=== PATIENT | female | born 1945 | race Caucasian/White ===

== ENCOUNTER → 2018-04-11 11:43 | Outpatient (CLI) | payer MEDICARE, OTHER, SELFPAY ==
[2018-04-11 10:41] VITALS: BMI 18.5
[2018-04-11 14:14] LABS: Anion Gap 11 (5-15); BUN 10 mg/dL (7-18); BUN/Creat Ratio 15.9 RATIO (10-20); Calcium,Total 9.4 mg/dL (8.5-10.1); Chloride 100 mmol/L (98-107); Creatinine, Serum 0.63 mg/dL (0.55-1.02); EST Glomerular Filtration Rate 99 mL/min (>60); Est Glom Filt Rate - Afr Amer 120 mL/min (>60); Glucose 98 mg/dL (74-106); Potassium 3.6 mmol/L (3.5-5.1); Sodium Level 138 mmol/L (136-145)
--- OUTSIDE RECORDS SUMMARY | 2018-05-28 13:13 | XMS RPT_ITS ---
:1945 Author Organization [facility] Care Team Providers Name Role Phone Pito Fung Attending Unavailable Kenton, Pito Referring Unavailable Pito Fung Attending Unavailable Kenton, Pito Referring Unavailable Pito Fung Primary Care Unavailable PROBLEMS PROBLEMS DATE TYPE CONDITION / CODE ATTENDING STATUS SOURCE 04/18/2018 Unknown M81.0 - Pito Fung Active [place] Age-related [facility] osteoporosis Hospital without current Repository pathological fracture / M81.0(ICD-10) 04/18/2018 Unknown I10 - Essential Pito Fung Active [place] (primary) [facility] hypertension / Hospital I10(ICD-10) Repository 04/18/2018 Unknown Z00.00 - Encounter Pito Fung Active [place] for general adult [facility] examination Repository without abnormal findings / Z00.00(ICD-10) PROCEDURES PROCEDURES No Procedure Records FoundRESULTS RESULTS INTERNAL MEDICINE Observed: 04/11/2018 Status: F Source: [place] OFFICE VISIT 12:38 PM [facility] REPOSITORY [facility] [address] [place] [address] [place] [address] OFFICE VISIT Date of Service: 04/11/18 MR#: [id number] Acct: [id number] Name: MADELINE HODGSON Rep #: [id number] : 1945 Provider: Pito Fung DO Age/Sex: 72/F Location: [facility] Status: Signed Intake Vital Signs04/11/18 Height 5 ft 4 in Intake Visit Reasons: YRLY CHECKUP AND REFILLS Chief Complaint: yrly check Is patient in pain?: No Allergies No Known Allergies Allergy (Unverified 04/11/18 10:41) Medications acetyll-sarnitine PO 04/11/18 [History Confirmed 04/11/18] aloe vera PO 04/11/18 [History Confirmed 04/11/18] ascorbic acid (vitamin C) 500 mg capsule mg PO cap 04/11/18 [History Confirmed 04/11/18] astaxanthin 4 mg capsule mg PO cap 04/11/18 [History Confirmed 04/11/18] cholecalciferol (vitamin D3) 2,000 unit capsule 2,000 unit PO DAILY 04/11/18 [History Confirmed 04/11/18] cholestacare PO 04/11/18 [History Confirmed 04/11/18] digest assure PO 04/11/18 [History Confirmed 04/11/18] ibandronate 150 mg tablet 150 mg PO QMONTH #1 tab 04/11/18 [Rx Confirmed 04/11/18] immune factor PO 04/11/18 [History Confirmed 04/11/18] lisinopril 10 mg-hydrochlorothiazide 12.5 mg tablet 1 tab PO DAILY #90 tab 04/11/18 [Rx Confirmed 04/11/18] liver antioxidant PO 04/11/18 [History Confirmed 04/11/18] magnesium 250 mg tablet 250 mg PO DAILY 04/11/18 [History Confirmed 04/11/18] marine sollagen peptide PO 04/11/18 [History Confirmed 04/11/18] multivitamin capsule 1 cap PO DAILY 04/11/18 [History Confirmed 04/11/18] omega-3 fatty acids 500 mg capsule 500 mg PO DAILY 04/11/18 [History Confirmed 04/11/18] psyllium husk 0.52 gram capsule 0.52 g PO DAILY 04/11/18 [History Confirmed 04/11/18] resveratrol 50 mg capsule mg PO cap 04/11/18 [History Confirmed 04/11/18] ultimate eye support MISCELLANEOUS 04/11/18 [History Confirmed 04/11/18] ultimate friendly kristine PO 04/11/18 [History Confirmed 04/11/18] vitamin K2 40 mcg tablet 40 mcg PO DAILY 04/11/18 [History Confirmed 04/11/18] Post menopausal: Yes PFSH Medical History Osteoporosis (Chronic) Hypertension (Chronic) Family History Father Colon cancer Mother Hypertension Parkinsons Social History Smoking Status: Never smoker alcohol intake: never substance use type: does not use what type of physical activity do you participate in: walking frequency: daily HPI HPI Chief Complaint: yrly check Details: MADELINE HODGSON, is a 72 F who presents to the office today for a regular yearly checkup. At this point in time she voices no new complaints although she does take a huge amount of natural supplements. ROS Const Constitutional: No weight change, body ache, chills, fatigue, sleep problems, fever(s), change in appetite, snoring, weakness, frequent falls, headache(s) or excessive sweating Eyes Eyes: No change in vision, eye pain, light sensitivity or blurry vision ENT ENT: No headache(s), abnormal hearing, ear pain, tinnitus, nasal congestion, sore throat or neck pain Resp Respiratory: No snoring, cough, shortness of breath or wheezing Cardio Cardiology: No excessive sweating, chest pain at rest, chest pain with exertion, shortness of breath, dyspnea on exertion, palpitations, orthopnea or lightheadedness Gastro GI: No abdominal pain, change in bowel habits, constipation, diarrhea, vomiting, nausea/dyspepsia or cramping Genitourinary-Female: No burning urination, painful urination, urinary incontinence, urinary frequency, abnormal vaginal bleeding, pelvic pain or other Musc Musculoskeletal: No neck pain, abnormal walking, joint pain, back pain, limited range of motion, numbness, tingling or muscle weakness Skin Skin: No redness, dry skin, itching, lesions, wounds or rash Neuro Neurology: No weakness, frequent falls, headache(s), abnormal hearing, abnormal walking, numbness, tingling, abnormal speech, dizziness or memory loss Psych Psychiatric: No change in appetite, No memory loss, No anxiety, No depression, No Thoughts of harming yourself/Others Endo Endocrine: No fatigue, excessive sweating, cold intolerance, increased thirst/drinking, heat intolerance, flushing or increased hunger Aller/Imm Allergy/Immunologic: No wheezing, itchy eyes, hives or seasonal allergy symptoms Ed/Lymp Hematologic/Lymphatic: No easy bleeding, easy bruising or enlarged lymph nodes Exam Const General: cooperative, healthy appearing Nutritional Appearance: thin Orientation: oriented x3 HENMT Head: normal to inspection Ears: hearing grossly normal bilaterally, TM's normal bilaterally Nose: external nose normal Face and sinus: normal facial exam Mouth: oral mucosae normal Teeth and gingiva: dentition normal Throat: posterior oropharynx normal Eyes General: appearance normal, both eyes and all related structures Neck Neck: normal visual inspection, no lymphadenopathy Neck mass: No Resp Effort AND Inspection: normal respiratory effort Auscultation: Bilateral: Clear to Auscultation Cardio Rate: regular rate Rhythm: regular rhythm Musc Musculoskeletal: No joint tenderness, joint redness, joint warmth, decreased ROM, spinal deformity, scoliosis to L, scoliosis to R, lordosis or muscle weakness Skin General: no rashes or lesions noted Extrem General: normal to inspection, no clubbing, cyanosis or edema Psych Mood: congruent mood Affect: normal affect Attitude: cooperative Thought Process: normal Assessment AND Plan Problems 1. Annual physical exam Z00.00 2. Essential hypertension I10 3. Osteoporosis M81.0 Plan This patient is well-known to me seen for annual physical examination. She has refused all immunizations including shingles influenza and Pneumovax she did agree to do a Marialuisa guard but had refused a colonoscopy. She takes her medications regularly and physical examination revealed no changes from prior exams. I will try and go along with her wishes as to be as noninvasive is possible and still help her maintain good health. Orders Orders: Medications New: Coding Level of Care Code Off vis,est,prev 65+yrs Diagnoses Annual physical exam Z00.00 Essential hypertension I10 Hypertension type: essential hypertension Osteoporosis M81.0 Osteoporosis type: age-related Encounter type: subsequent encounter 04/11/18 [id number] <Electronically signed by Pito Fung DO> Date Pito Fung DO Cosigner Signature: Date (if applicable) CC: BASIC METABOLIC Collected: 04/11/2018 Status: F Source: [place] PROFILE (BMP) 11:57 AM [facility] REPOSITORY TYPE CODE TESTS RESULT OUT OF RANGE REFERENCE UNITS LAB L501.0100 74-106 mg/dL Normal GLU 98 Result Comment: Please note revised GLUCOSE reference range effective 2017. LAB L501.1000 7-18 mg/dL Normal BUN 10 LAB L501.1100 0.55-1.02 mg/dL Normal CREAT,SERUM 0.63 Result Comment: The validity of the calculated GFR AND GFRAA in patients over 70 years has not been determined. Clinical correlation is essential. LAB L501.1110 >60 mL/min Normal EST GFR 99 Result Comment: Non- GFR Calc LAB L501.1115 >60 mL/min Normal EST GFR - AA 120 Result Comment: GFR Calc LAB L501.1300 10-20 RATIO Normal BUN/CRE 15.9 LAB L501.2200 8.5-10.1 mg/dL CA Normal 9.4 LAB L501.5300 136-145 mmol/L NA Normal 138 LAB L501.5600 3.5-5.1 mmol/L K Normal 3.6 LAB L501.5900 98-107 mmol/L CL Normal 100 LAB L501.6100 21.0-32.0 mmol/L Normal CO2 27.0 LAB L501.6200 5-15 Normal GAP 11 Performed By: #### L500.2500 #### [facility] [address] [place], [place], [address] ALLERGIES ALLERGIES DATE TYPE / CODE NAME / CODE REACTION SEVERITY SOURCE 04/11/2018 Drug No Known Unknown [facility] Allergy/4160 Allergies/F00 [facility] [address](SNOMED [id number](RXNOR Repository CT) M) ENCOUNTERS ENCOUNTERS ADMIT/DISCHARGE ACCOUNT ADMITTING ENCOUNTER LOCATION SOURCE NUMBER CLASS 04/11/2018 [id number] Ambulatory [place] 7 [facility] ing:MTLAB Repository 04/11/2018/ [id number] Ambulatory BMSBuilding:B [place] 8 2 MS.BIM [facility] Repository PAYERS PAYERS ENCOUNTER GUARANTOR PAYER SUBSCRIBER SOURCE 04/11/2018 MADELINE DANIELSONH731 Primary MADELINE VALVERDEOB: [place] Insurance:[place]IC[id number] PART A [facility] [address]Jsc: (501) Number: Repository [phone] () [id number] Date:2018-04-11 04/11/2018 Secondary MADELINE COTTRELLHDOB: [place] Insurance:AETNA [id number] Number: Repository [id number] Date:8864-07-27EPAGK SENIOR SUPPLEMENT [address] [address], [place] [address]FK: 04/11/2018 Tertiary NOT GIVENUNK [place] Insurance:SELF PAY [facility] Number: Effective Repository Date:2018-04-11 04/11/2018 MADELINE DANIELSONH731 Primary MADELINE WIRTHDOB: [place] [address] Insurance:MEDICARE [id number] [address]Nag: (330) Number: Repository [phone] ) [id number] Date:2017-10-31 04/11/2018 Secondary MADELINE DANIELSONHDOB: [place] [facility] [id number] Number: Repository [id number] Date:1654-03-67UPQKY SENIOR SUPPLEMENT [address] [address], [place] [address]RY: 04/11/2018 Tertiary NOT GIVENUNK [place] Insurance:SELF PAY [facility] Number: Effective Repository Date:2018-04-11
== END ==
PROVIDERS: Family Provider Family Medicine; PCP Family Medicine; Referring Provider Family Medicine; Visit Provider Family Medicine
DX: I10 Essential (primary) hypertension (principal)
CPT/HCPCS: 36415; 80048

== ENCOUNTER → 2018-06-07 10:29 | Outpatient (CLI) | payer MEDICARE, OTHER, SELFPAY ==
[2018-04-11 10:41] VITALS: BMI 18.5
--- NOTE | 2018-06-07 10:52 | BD_ITS ---
STUDY: DUAL ENERGY X-RAY ABSORPTIOMETRY / DXA REASON FOR EXAM: Female, 72 years old. The patient is postmenopausal. TECHNIQUE: Bone Mineral Density (BMD) measurements of lumbar spine and bilateral hips were obtained. COMPARISON: None. FINDINGS: Lumbar Spine (L1-L4): g/cm2 (0.739) / T-score (-3.6) / Z-score (-1.9) Findings are suggestive of osteoporosis with a high fracture risk. Left Femur Total: g/cm2 (0.720) / T-score (-2.3) / Z-score (-0.7) Left Femoral Neck: g/cm2 (0.739) / T-score (-2.2) / Z-score (-0.3) Right Femur Total: g/cm2 (0.771) / T-score (-1.9) / Z-score (-0.3) Right Femoral Neck: g/cm2 (0.787) / T-score (-1.8) / Z-score (0.0) BD/Dexa Bone Density Study IMPRESSION: The patient is considered osteoporotic as outlined below according to World Yaniv Organization (WHO) criteria with a high fracture risk. Reference Information: The T-score is the number of standard deviations above or below the standard which is normal for young adults at their peak bone mineral density. The World Health Organization (WHO) interprets the T-scores as follows: Above -1 Normal bone density Between -1 and -2.5 Osteopenia Equal to / or below -2.5 Osteoporosis As a practical clinical guideline, osteopenia may be graded as follows: Mild -1 through -1.5 Moderate -1.6 through -2.0 Severe -2.1 through -2.4 The Z-score is the number of standard deviations above or below age-matched controls. A Z-score of less than -1.5 would be considered abnormal. References: 1. NIH Osteoporosis and Related Bone Diseases http://www.osteo.org 2. International Society for Clinical Densitometry http://www.iscd.org 3. National Osteoporosis Foundation http://www.nof.org Electronically Signed: Brien Lynn MD at 10:29 EST , Service support ,
== END ==
PROVIDERS: Family Provider Family Medicine; PCP Family Medicine; Referring Provider Family Medicine; Visit Provider Family Medicine
DX: M81.0 Age-related osteoporosis without current pathological fracture (principal)
CPT/HCPCS: 77080

== ENCOUNTER → 2019-04-17 09:16 | Outpatient (CLI) | payer MEDICARE, OTHER, SELFPAY ==
[2019-04-17 13:06] LABS: ALB/GLOB Ratio 1.4 RATIO (0.9-2.4); AST(SGOT) 32 U/L (15-37); Alanine Aminotransfer ALT/SGPT 30 U/L (13-56); Albumin, Serum 4.2 g/dL (3.2-5.0); Alkaline Phosphatase 35 U/L (45-117); Anion Gap 6 (5-15); BUN 10 mg/dL (7-18); BUN/Creat Ratio 15.3 RATIO (10-20); Calcium,Total 9.1 mg/dL (8.5-10.1); Chloride 103 mmol/L (98-107); Creatinine, Serum 0.66 mg/dL (0.55-1.02); EST Glomerular Filtration Rate 94 mL/min (>60); Est Glom Filt Rate - Afr Amer 114 mL/min (>60); Globulin 2.9 g/dL (2.2-4.2); Glucose 95 mg/dL (74-106); Protein, Total 7.1 g/dL (6.4-8.2); Sodium Level 135 mmol/L (136-145)
== END ==
PROVIDERS: Family Provider Family Medicine; PCP Family Medicine; Visit Provider Family Medicine
DX: I10 Essential (primary) hypertension (principal)
CPT/HCPCS: 36415; 80053

== ENCOUNTER → 2020-04-30 09:00 | Outpatient (CLI) | payer MEDICARE, OTHER, SELFPAY ==
[2020-04-30 08:30] VITALS: BMI 20.5
[2020-04-30 13:12] LABS: ALB/GLOB Ratio 1.4 RATIO (0.9-2.4); AST(SGOT) 27 U/L (15-37); Alanine Aminotransfer ALT/SGPT 27 U/L (13-56); Albumin, Serum 4.2 g/dL (3.2-5.0); Alkaline Phosphatase 42 U/L (45-117); Anion Gap 5 (5-15); BUN 13 mg/dL (7-18); BUN/Creat Ratio 19.2 RATIO (10-20); Chloride 104 mmol/L (98-107); Creatinine, Serum 0.68 mg/dL (0.55-1.02); EST Glomerular Filtration Rate 90 mL/min (>60); Est Glom Filt Rate - Afr Amer 109 mL/min (>60); Glucose 107 mg/dL (74-106); Potassium 3.5 mmol/L (3.5-5.1); Protein, Total 7.2 g/dL (6.4-8.2); Sodium Level 136 mmol/L (136-145)
== END ==
PROVIDERS: PCP Family Medicine; Visit Provider Family Medicine
DX: I10 Essential (primary) hypertension (principal)
CPT/HCPCS: 36415; 80053

== ENCOUNTER → 2020-06-11 10:40 | Outpatient (CLI) | payer MEDICARE, OTHER, SELFPAY ==
[2020-04-30 08:30] VITALS: BMI 20.5
--- NOTE | 2020-06-11 10:51 | BD_ITS ---
STUDY: DUAL ENERGY X-RAY ABSORPTIOMETRY / DXA REASON FOR EXAM: Female, 74 years old. SIDE BOSS -- TAKES HCTZ -- TAKES CALCIUM AND MULTIVITAMIN -- TAKES BONIVA- BEEN ON x5 YRS -- MONY OF 3 INCHES TECHNIQUE: Bone Mineral Density (BMD) measurements of lumbar spine and bilateral hips were obtained. COMPARISON: Comparison is made with prior study dated 06/07/2018. FINDINGS: Lumbar Spine (L1-L4): g/cm2 (0.807) / T-score (-3.3) / Z-score (-1.5) Findings are suggestive of osteoporosis with a high fracture risk. Left Femur Total: g/cm2 (0.754) / T-score (-2.0) / Z-score (-0.3) Left Femoral Neck: g/cm2 (0.731) / T-score (-2.2) / Z-score (-0.3) Right Femur Total: g/cm2 (0.759) / T-score (-2.0) / Z-score (-0.3) Right Femoral Neck: g/cm2 (0.723) / T-score (-2.3) / Z-score (-0.4) The T-Scores on the most recent prior examination were: Lumbar Spine (L1-L4): There has been improvement of bone density since the previous examination. Left Femur Total: which represents an improvement of 4.7%. Right Femur Total: which represents a worsening of 1.6%. BD/Dexa Bone Density Study IMPRESSION: The patient is considered osteoporotic as outlined below according to World Yaniv Organization (WHO) criteria with a high fracture risk. There has been improvement of bone density since the previous examination. Reference Information: The T-score is the number of standard deviations above or below the standard which is normal for young adults at their peak bone mineral density. The World Health Organization (WHO) interprets the T-scores as follows: Above -1 Normal bone density Between -1 and -2.5 Osteopenia Equal to / or below -2.5 Osteoporosis As a practical clinical guideline, osteopenia may be graded as follows: Mild -1 through -1.5 Moderate -1.6 through -2.0 Severe -2.1 through -2.4 The Z-score is the number of standard deviations above or below age-matched controls. A Z-score of less than -1.5 would be considered abnormal. References: 1. NIH Osteoporosis and Related Bone Diseases www osteo.org 2. International Society for Clinical Densitometry www iscd.org 3. National Osteoporosis Foundation www nof.org Electronically Signed: Brien Lynn MD at 13:16 EST , Service support ,
== END ==
PROVIDERS: PCP Family Medicine; Referring Provider Family Medicine; Visit Provider Family Medicine
DX: M81.0 Age-related osteoporosis without current pathological fracture (principal)
CPT/HCPCS: 77080

== ENCOUNTER 2021-05-06 08:55 | Outpatient (CLI) | payer MEDICARE, OTHER, SELFPAY ==
[2021-05-06 12:34] LABS: Anion Gap 9 (5-15); BUN 17 mg/dL (7-18); BUN/Creat Ratio 29.3 RATIO (10-20); Calcium,Total 9.2 mg/dL (8.5-10.1); Chloride 104 mmol/L (98-107); Creatinine, Serum 0.58 mg/dL (0.55-1.02); EST Glomerular Filtration Rate 107 mL/min (>60); Est Glom Filt Rate - Afr Amer 130 mL/min (>60); Glucose 105 mg/dL (74-106); Potassium 3.6 mmol/L (3.5-5.1); Sodium Level 140 mmol/L (136-145)
== END 2021-05-06 23:59 | disposition short-term general hospital (02) ==
LOC: BIMLAB 08:56
PROVIDERS: PCP Family Medicine; Visit Provider Family Medicine
DX: I10 Essential (primary) hypertension (principal); M81.0 Age-related osteoporosis without current pathological fracture
CPT/HCPCS: 36415; 80048

== ENCOUNTER 2021-08-20 09:40 | Day surgery (SDC) | payer MEDICARE, OTHER, SELFPAY ==
--- NOTE | 2021-07-01 15:08 | CASEMGMT ---
NEHEMIAS GREENFIELD NOTE: Pt is scheduled for colonoscopy 08/24/21. Call placed to pt to inquire if she has transportation to and from the procedure and if she has a responsible adult to accompany her home afterwards. Pt states she has not looked into it yet, but plans to contact her cousin, Dalila, to see if she may be available. She states she will call back to RN GIN department with response. Sanjuana WEATHERS RN, CM
--- NOTE | 2021-07-08 16:40 | CASEMGMT ---
NEHEMIAS GREENFIELD NOTE: NEHEMIAS GREENFIELD placed call to pt. She states she was able to find a responsible adult to take her home after the procedure on 08/24/21, which is as follows: Alcira Loyd: . Pt states Alcira is a retired nurse. Pt made aware it is recommended to have someone spend the night with her after the procedure Pt states, as for now, Alcira but will not be spending the night with pt, but she is considering asking her to be available to stay if she changes her mind. Pt states she also has a 2nd person lined up to take her home, in the event Alcira is not available. This is: Paulo Zuniga: . Pt states she will need picked up @ her home by [facility] van transportation in the morning before the procedure to bring her to the hospital. Pt is aware staff will be calling her on the Tuesday before the procedure to inform her of procedure time on 08/24. She was instructed to inform them, when they call, that she will need transportation to the hospital for the procedure. NEHEMIAS GREENFIELD e-mailed Lisbeth Rodriguez, @ [facility], notifying her of the above and that [facility] Van transportation will need to be arranged. Sanjuana WEATHERS RN, CM
[2021-08-20] MEDS: Lactated Ringers 1,000 ML 15 ML IV (09:55)
--- NOTE | 2021-08-20 09:56 | PCM.HP.BLA ---
History and Physical Date of Admission: 08/20/21 MADELINE HODGSON, is a 75 F who presents to the office today for Evaluation of diarrhea that has been ongoing for quite a while and progression in frequency and intensity. She will have urgent stool with clear liquid and a ?sawdust? looking stool multiple times a day. Once she had blood and something small ?fell out? and she pushed it back in. This happened with a larger amount of something fell out and she was not able to get it back in and she called the squad. She was taken to [facility] in [place] where staff was able to get it returned and she was told it was her intestine and she was discharged home with recommendation to start stool softener. Followed up with surgeon who saw her 06.11.2021 and he banded a hemorrhoid but this has not totally solved the situation. There is a strong family history of colon cancer on her fathers side of the family and she is very nervous about this. She has been avoiding colonoscopies to date because she does not want to have a cancer diagnosis. Discussed at length what a colonoscopy could help with regarding diagnosis. Cologuard positive results 04.25.18. No colonoscopy performed to date. Medical history includes osteoporosis (severe as seen on done density) and HTN. ROS Const Constitutional: No anorexia, fatigue, fever(s), weight change or sleep problems Eyes Eyes: No change in vision ENT ENT: No abnormal hearing, difficulty swallowing, mouth lesions, tongue swelling or throat swelling Resp Respiratory: No cough or shortness of breath Cardio Cardiology: No chest pain at rest, chest pain with exertion, shortness of breath or dyspnea on exertion Gastro GI: No difficulty swallowing Genitourinary-Female: No difficulty urinating or burning urination Musc Musculoskeletal: No joint pain, joint swelling, muscle weakness or decreased muscle mass Skin Skin: No hair loss in leg, yellowing of the eye, itchy eyes, rash, skin ulcer or skin swelling Neuro Neurology: No abnormal hearing, abnormal movements, confusion, unsteady gait/balance or memory loss Psych Psychiatric: No anxiety, No confusion and No memory loss Endo Endocrine: No fatigue or weight change Aller/Imm Allergy/Immunologic: No itchy eyes, throat swelling or tongue swelling Ed/Lymp Hematologic/Lymphatic: No easy bleeding, easy bruising or enlarged lymph nodes Exam Const General: cooperative and comfortable Nutritional Appearance: average body habitus and well nourished [facility] Head: normal to inspection Ears: hearing grossly normal bilaterally Nose: external nose normal Face and sinus: normal facial exam Mouth: oral mucosae normal Throat: posterior oropharynx normal Eyes General: appearance normal, both eyes and all related structures Neck Neck: normal visual inspection Chest Chest palpation & inspection: normal inspection of the chest and normal palpation of entire chest wall Resp Effort & Inspection: normal respiratory effort Auscultation: Bilateral: Clear to Auscultation Cardio Palpation: normal PMI Rate: regular rate Rhythm: regular rhythm GI Inspection: normal to inspection Auscultation: normal bowel sounds Percussion: normal to percussion Palpation: no hepatosplenomegaly Skin General: no rashes or lesions noted Neuro General: patient alert Extrem General: normal to inspection Psych Affect: normal affect Quality Reporting Tobacco Screening ([facility] 138) Smoking Status: Never smoker Assessment and Plan Assessment and Plan (1) Colonoscopy : Status: Acute Plan - Dr. Lerner Friend, DO: She was explained alternatives, risk, benefits including outstanding bleeding, infection, sepsis, perforation, need for emergent . She will have an ASA of 3. Coding Level of Care Code Off vis,new,level 3
[2021-08-20 10:09] VITALS: BP 112/73; PULSE 106; RESP 18; TEMP 36.6; O2SAT 98; BMI 18.1
--- NOTE | 2021-08-20 11:00 | COLBX_PTH ---
PATIENT: MADELINE HODGSON LOC: EN U#:[id number] AGE/SX: 75/F ROOM: RE08/20/[address]: Dr. Yann Quintana DO : 1945 BED: DIS: 08/20/2021 SPEC #: [id number] RECD: 08/20/21 11:54 STATUS: MICHAEL REChrista #: [id number] ROVERTO: 08/20/21 11:[address]: Yann Quintana DEPT: SURGICAL PATHOLOGY RECD BY: Kathy Crowley ENTERED: 08/20/21 12:26 SP TYPE: COLON BX ZURDO DR: Dr. Pito Fung DO Tissues: A - Sigmoid colon biopsy B - Sigmoid colon biopsy Procedures: Frozen Section (charge) Surgery Specimen Level IV HEADER OPERATION: Colonoscopy ([facility]) with biopsies PRE-OP DIAGNOSIS: Screening, diarrhea TISSUE SUBMITTED: A - Sigmoid mass biopsy, frozen section, B - Sigmoid mass biopsy FROZEN SECTION DIAGNOSIS A. Sigmoid mass, biopsy: Fragments of tubular adenoma. SJ:hilario 08/20/2021 MICROSCOPIC DIAGNOSIS A. Sigmoid colon mass, biopsy: Fragments of tubular adenoma. B. Sigmoid colon mass, biopsy: Fragments of tubulovillous adenoma. AM:hilario 08/21/2021 COMMENT Case has been reviewed in consultation with Dr. Castle who concurs with the above diagnosis. IDC:REMY MICROSCOPIC DESCRIPTION Slides are reviewed. GROSS DESCRIPTION A - Received fresh for frozen section diagnosis labeled with the patient's name is a specimen designated sigmoid mass. The specimen consists of multiple irregular fragments of flroes soft tissue that in aggregate measure 0.3 x 0.3 x 0.1 cm. The entire specimen is submitted for frozen section diagnosis in one cassette. / REMY:hilario 08/20/2021 B - Received in fixative is one container labeled with the patient's name and designated sigmoid mass biopsy. The specimen consists of multiple irregular fragments of light flores soft tissue that in aggregate measure 2 x 0.5 x 0.1 cm. The specimen is totally submitted in one cassette. / REMY:hilario 08/20/2021 TC:5 CPT: 70354 x2, 93621
[2021-08-20 12:00] VITALS: BP 112/73; BP 91/67; PULSE 78; RESP 16; TEMP 37.1; O2SAT 100
[2021-08-20 12:05] VITALS: BP 112/73; BP 94/71; PULSE 63; RESP 16; O2SAT 100
--- NOTE | 2021-08-20 12:07 | OP.CCLET_ITS ---
01/28/2022 Pito Fung Re : Colonoscopy procedure for Evelyn Borges Dear Dr. Fung This procedure was performed on July. 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 Biopsied. Tattooed. - The entire examined colon is normal on direct and retroflexion views. - Internal hemorrhoids. Recommendations : - Refer to a surgeon. - Repeat colonoscopy in 1 year for surveillance based on pathology results. - Continue present medications. My findings are described in the full procedure note, which is enclosed. If I can be of further assistance, please feel free to contact me at . Sincerely, Yann Quintana, 08/20/2021 12:07:22 PM This report has been signed electronically.
--- NOTE | 2021-08-20 12:07 | OP.COLON_ITS ---
Patient Name: Evelyn Borges Procedure Date: 08/20/2021 11:09 AM Date of : 1945 Age: 75 Procedure: Colonoscopy Indications: Screening for colorectal malignant neoplasm Providers: Yann Quintana DO Medicines: Sedation Required Anesthesia Staff Assistance Patient Profile: This is a 75 year old female. Refer to note in patient chart for documentation of history and physical. Last Colonoscopy: none. The patient's first colonoscopy is today. Complications: No immediate complications. Procedure: Pre-Anesthesia Assessment: - Prior to the procedure, a History and Physical was performed, and patient medications and allergies were reviewed. The patient is competent. The risks and benefits of the procedure and the sedation options and risks were discussed with the patient. All questions were answered and informed consent was obtained. Patient identification and proposed procedure were verified by the physician in the pre-procedure area. Mental Status Examination: alert and oriented. Airway Examination: normal oropharyngeal airway and neck mobility. Respiratory Examination: clear to auscultation. CV Examination: normal. Prophylactic Antibiotics: The patient does not require prophylactic antibiotics. Prior Anticoagulants: The patient has taken no previous anticoagulant or antiplatelet agents. After reviewing the risks and benefits, the patient was deemed in satisfactory condition to undergo the procedure. The anesthesia plan was to use moderate sedation / analgesia (conscious sedation). Immediately prior to administration of medications, the patient was re-assessed for adequacy to receive sedatives. The heart rate, respiratory rate, oxygen saturations, blood pressure, adequacy of pulmonary ventilation, and response to care were monitored throughout the procedure. The physical status of the patient was re-assessed after the procedure. After I obtained informed consent, the scope was passed under direct vision. Throughout the procedure, the patient's blood pressure, pulse, and oxygen saturations were monitored continuously. The Colonoscope was introduced through the anus and advanced to the cecum, identified by the appendiceal orifice, ileocecal valve and palpation. The colonoscopy was performed without difficulty. The patient tolerated the procedure well. The quality of the bowel preparation was good. Moderate Sedation: Moderate (conscious) sedation was personally administered by an anesthesia professional. The following parameters were monitored: oxygen saturation, heart rate, blood pressure, and response to care. Total physician intraservice time was 15 minutes. Scope In: 11:18:26 AM Scope Withdrawal Time 0 hours 22 minutes 56 seconds Scope Out: 11:52:14 AM Total Procedure Duration Time 0 hours 33 minutes 48 seconds Findings: The perianal and digital rectal examinations were normal. A frond-like/villous partially obstructing large mass was found in the recto-sigmoid colon. The mass was circumferential. The mass measured seven cm in length. In addition, its diameter measured six mm. No bleeding was present. This was biopsied with a cold forceps for histology. Area was tattooed with an injection of 1 mL of Uyen ink. The entire examined colon appeared normal on direct and retroflexion views. Internal hemorrhoids were found during retroflexion. The hemorrhoids were Grade I (internal hemorrhoids that do not prolapse). Impression: - Malignant partially obstructing tumor in the recto-sigmoid colon. Biopsied. Tattooed. - The entire examined colon is normal on direct and retroflexion views. - Internal hemorrhoids. Recommendation: - Refer to a surgeon. - Repeat colonoscopy in 1 year for surveillance based on pathology results. - Continue present medications. Procedure Code(s): --- Professional --- 54185, Colonoscopy, flexible; with directed submucosal injection(s), any substance 72966, Colonoscopy, flexible; with biopsy, single or multiple CPT copyright 2017 [employer]. All rights reserved. The codes documented in this report are preliminary and upon tow bar driver review may be revised to meet current compliance requirements. Yann Quintana DO 08/20/2021 12:07:22 PM This report has been signed electronically. Number of Addenda: 1 Note Initiated On: 08/20/2021 11:09 AM Addendum Number: 1 Addendum Date: 01/28/2022 6:28:25 AM MAC was used as sedation for this procedure. Yann Quintana DO 01/28/2022 6:28:29 AM This report has been signed electronically.
[2021-08-20 12:10] VITALS: BP 102/80; BP 112/73; PULSE 65; RESP 16; O2SAT 99
[2021-08-20 12:15] VITALS: BP 106/71; BP 112/73; PULSE 68; RESP 16; TEMP 36.4; O2SAT 100
[2021-08-20 13:02] VITALS: BP 112/73
== END 2021-08-20 23:59 | disposition home or self-care (01) ==
LOC: EN 09:42 → AC 09:44
PROVIDERS: PCP Family Medicine; Referring Provider Family Medicine; Visit Provider Internal Medicine Gastroenterology
PROC: 0DJD8ZZ Inspection of Lower Intestinal Tract, Via Natural or Artificial Opening Endoscopic (ICD-10-PCS; CPT 45378; principal; 2021-08-20 10:55)
DX: Z12.11 Encounter for screening for malignant neoplasm of colon (principal); D12.5 Benign neoplasm of sigmoid colon; K64.0 First degree hemorrhoids; I10 Essential (primary) hypertension; M81.0 Age-related osteoporosis without current pathological fracture; Z79.899 Other long term (current) drug therapy; Z80.0 Family history of malignant neoplasm of digestive organs; Z20.822 Contact with and (suspected) exposure to COVID-19
CPT/HCPCS: 45380; 45381; 87426; 88305; 88331; J7120; A4648

== ENCOUNTER → 2021-08-27 | Outpatient (CLI) | payer MEDICARE, OTHER, SELFPAY ==
[2021-08-27 16:22] LABS: ALB/GLOB Ratio 1.3 RATIO (0.9-2.4); AST(SGOT) 25 U/L (15-37); Alanine Aminotransfer ALT/SGPT 29 U/L (13-56); Albumin, Serum 4.4 g/dL (3.2-5.0); Alkaline Phosphatase 38 U/L (45-117); Anion Gap 5 (5-15); BUN 20 mg/dL (7-18); BUN/Creat Ratio 29.9 RATIO (10-20); Chloride 103 mmol/L (98-107); Creatinine, Serum 0.67 mg/dL (0.55-1.02); EST Glomerular Filtration Rate 91 mL/min (>60); Est Glom Filt Rate - Afr Amer 111 mL/min (>60); Globulin 3.3 g/dL (2.2-4.2); Glucose 111 mg/dL (74-106); Potassium 3.7 mmol/L (3.5-5.1); Protein, Total 7.7 g/dL (6.4-8.2); Sodium Level 137 mmol/L (136-145)
[2021-08-29 09:45] LABS: Carcinoembryonic Antigen 4.3 ng/mL (0.0-4.7)
== END | disposition home or self-care (01) ==
LOC: LAB 14:25
PROVIDERS: PCP Family Medicine; Referring Provider Surgery; Visit Provider Surgery
DX: K91.840 Postprocedural hemorrhage of a digestive system organ or structure following a digestive system procedure (principal); C18.9 Malignant neoplasm of colon, unspecified; K63.5 Polyp of colon
CPT/HCPCS: 36415; 80053; 82378

== ENCOUNTER → 2021-09-01 | Outpatient (CLI) | payer MEDICARE, OTHER, SELFPAY ==
--- NOTE | 2021-09-01 07:27 | CT_ITS ---
STUDY: CT CHEST, ABDOMEN T PELVIS WITH CONTRAST REASON FOR EXAM: Female, 75 years old. Family history of colon cancer. Rectal prolapse. Abnormal colonoscopy and diarrhea. RADIATION DOSAGE (If Supplied By Facility): CTDIvol = ( 7.36 ) mGy, DLP = ( 441.15 ) mGycm TECHNIQUE: Transaxial imaging was performed following intravenous administration of Oral and amp; IV Readi-CAT and amp; 75mL Isovue-300. Individualized dose optimization techniques were used for this CT. COMPARISON: No relevant priors. FINDINGS: CHEST Pectus excavatum deformity. There is a 8.1 mm bulla in the right upper lobe. The remainder of the lungs is unremarkable. There is no demonstrated pleural abnormality. Mild degree of coronary artery calcification. Normal mediastinum. Normal hilar regions. Normal unenhanced pulmonary arteries. There is atherosclerotic calcification of the aortic arch and descending thoracic aorta. There are degenerative changes of the thoracic spine. ABDOMEN Normal liver. Normal gallbladder and extrahepatic biliary system. Normal spleen. Normal pancreas. Normal bilateral adrenal glands. Normal right kidney. Normal left kidney. Normal visualized stomach. Normal small intestine. A large amount of fecal material is seen in the colon. Large soft tissue density is seen in the rectum. This may represent either a neoplastic mass versus fecal retention. Clinical correlation is recommended. The appendix is visualized and appears normal. There is diffuse atherosclerotic calcification of the abdominal aorta, without a demonstrated aneurysm. Normal inferior vena cava. Normal retroperitoneum. Normal abdominal wall. There are degenerative changes of the visualized lumbar spine. PELVIS Normal urinary bladder. There is diffuse atherosclerotic calcification of the pelvic arteries. CT/CT Chest, Abd, Pel w/Contrast IMPRESSION: Large amount of fecal material is seen in the colon. Large soft tissue density is seen in the rectum. This may represent either fecal retention versus possible mass. Clinical correlation recommended. Electronically Signed: Brien Lynn MD at 9:49 EDT ,
== END | disposition home or self-care (01) ==
LOC: CT 07:26
PROVIDERS: PCP Family Medicine; Referring Provider Surgery; Visit Provider Surgery
DX: R63.4 Abnormal weight loss (principal); R63.5 Abnormal weight gain; Z80.0 Family history of malignant neoplasm of digestive organs
CPT/HCPCS: 71260; 74177

== ENCOUNTER 2022-03-17 16:15 | Outpatient (CLI) | payer MEDICARE, OTHER, SELFPAY ==
[2022-03-17 16:17] LABS: Mucous, Urine 0 SEEN /hpf (<or=2+); Squamous Epithelial Cells - UA 0 SEEN /hpf (5-10); White Blood Cells 0 SEEN /hpf (0-5)
[2022-03-17 16:24] LABS: Color, Urine Yellow (Yellow); Glucose, Dipstick Normal (Normal); Ketone-Dipstick Negative (Negative); Leukocyte Esterase-Dipstick Negative /ul (Negative); Nitrite-Dipstick Negative (Negative); Occult Blood-Urine 150 /ul (Negative); Protein-Dipstick Negative (Negative); Urine Bilirubin Dipstick Negative (Negative); Urine Clarity Sl. Cloudy (Clear); Urine Urobilinogen Normal (Normal)
[2022-03-17 16:31] LABS: Amorphous Sediment 2+
[2022-03-17 16:32] LABS: Bacteria RARE /hpf (None Seen); Red Blood Cells-Urine 0-5 SEEN /hpf (0-5)
== END 2022-03-17 23:59 | disposition home or self-care (01) ==
LOC: LABSPEC 16:15
PROVIDERS: PCP Family Medicine; Visit Provider Physician Assistant
DX: R39.9 Unspecified symptoms and signs involving the genitourinary system (principal)
CPT/HCPCS: 81001; 87086; 87088

== ENCOUNTER 2022-03-29 10:12 | Outpatient (CLI) | payer MEDICARE, OTHER, SELFPAY ==
[2022-03-29 10:24] LABS: Mucous, Urine 0 SEEN /hpf (<or=2+); Red Blood Cells-Urine 0 SEEN /hpf (0-5)
[2022-03-29 12:28] LABS: Color, Urine Yellow (Yellow); Glucose, Dipstick Normal (Normal); Ketone-Dipstick Negative (Negative); Leukocyte Esterase-Dipstick Negative /ul (Negative); Nitrite-Dipstick Negative (Negative); Occult Blood-Urine Negative /ul (Negative); Protein-Dipstick Negative (Negative); Urine Bilirubin Dipstick Negative (Negative); Urine Clarity Cloudy (Clear); Urine Urobilinogen Normal (Normal)
[2022-03-29 12:55] LABS: Amorphous Sediment 3+
[2022-03-29 12:57] LABS: Bacteria 2+ /hpf (None Seen); Squamous Epithelial Cells - UA 0-5 SEEN /hpf (5-10); White Blood Cells 0-5 SEEN /hpf (0-5)
== END 2022-03-29 23:59 | disposition home or self-care (01) ==
LOC: LABSPEC 10:18
PROVIDERS: PCP Family Medicine; Referring Provider Physician Assistant; Visit Provider Physician Assistant
DX: R31.9 Hematuria, unspecified (principal)
CPT/HCPCS: 81001

== ENCOUNTER → 2022-05-12 | Outpatient (CLI) | payer MEDICARE, OTHER, SELFPAY ==
[2022-05-12 13:09] LABS: Vitamin D,25 Hydroxy 109.1 ng/mL
[2022-05-12 13:10] LABS: ALB/GLOB Ratio 1.3 RATIO (0.9-2.4); AST(SGOT) 24 U/L (15-37); Alanine Aminotransfer ALT/SGPT 28 U/L (13-56); Albumin, Serum 4.2 g/dL (3.2-5.0); Alkaline Phosphatase 39 U/L (45-117); Anion Gap 8 (5-15); BUN 14 mg/dL (7-18); BUN/Creat Ratio 22.8 RATIO (10-20); Calcium,Total 9.3 mg/dL (8.5-10.1); Chloride 103 mmol/L (98-107); Creatinine, Serum 0.61 mg/dL (0.55-1.02); EST Glomerular Filtration Rate 101 mL/min (>60); Est Glom Filt Rate - Afr Amer 122 mL/min (>60); Globulin 3.2 g/dL (2.2-4.2); Glucose 108 mg/dL (74-106); Potassium 3.6 mmol/L (3.5-5.1); Protein, Total 7.4 g/dL (6.4-8.2); Sodium Level 138 mmol/L (136-145)
== END | disposition home or self-care (01) ==
LOC: BIMLAB 08:55
PROVIDERS: PCP Family Medicine; Referring Provider Family Medicine; Visit Provider Family Medicine
DX: I10 Essential (primary) hypertension (principal); M81.0 Age-related osteoporosis without current pathological fracture
CPT/HCPCS: 36415; 80053; 82306

== ENCOUNTER → 2022-06-15 | Outpatient (CLI) | payer MEDICARE, OTHER, SELFPAY ==
--- NOTE | 2022-06-15 10:46 | BD_ITS ---
STUDY: DUAL ENERGY X-RAY ABSORPTIOMETRY / DXA REASON FOR EXAM: Female, 76 years old. Osteoporosis TECHNIQUE: Bone Mineral Density (BMD) measurements of lumbar spine and bilateral hips were obtained. COMPARISON: Comparison is made with prior study dated 06/11/2020. FINDINGS: Lumbar Spine (L1-L4): g/cm2 (0.636) / T-score (-3.5) / Z-score (-1.0) Findings are suggestive of osteoporosis with a high fracture risk. Left Femur Total: g/cm2 (0.673) / T-score (-2.2) / Z-score (-0.3) Left Femoral Neck: g/cm2 (0.597) / T-score (-2.3) / Z-score (-0.1) Right Femur Total: g/cm2 (0.666) / T-score (-2.3) / Z-score (-0.4) Right Femoral Neck: g/cm2 (0.596) / T-score (-2.3) / Z-score (-0.1) The T-Scores on the most recent prior examination were: Lumbar Spine (L1-L4): There has been worsening of bone density since the previous examination. Left Femur Total: which represents a worsening of 3.1. Right Femur Total: which represents a worsening of 4.8%. BD/Dexa Bone Density Study IMPRESSION: The patient is considered osteoporotic as outlined below according to World [employer] Organization (WHO) criteria with a high fracture risk. There has been worsening of bone density since the previous examination. Reference Information: The T-score is the number of standard deviations above or below the standard which is normal for young adults at their peak bone mineral density. The World Health Organization (WHO) interprets the T-scores as follows: Above -1 Normal bone density Between -1 and -2.5 Osteopenia Equal to / or below -2.5 Osteoporosis As a practical clinical guideline, osteopenia may be graded as follows: Mild -1 through -1.5 Moderate -1.6 through -2.0 Severe -2.1 through -2.4 The Z-score is the number of standard deviations above or below age-matched controls. A Z-score of less than -1.5 would be considered abnormal. References: 1. NIH Osteoporosis and Related Bone Diseases www osteo.org 2. International Society for Clinical Densitometry www iscd.org 3. National Osteoporosis Foundation www nof.org Electronically Signed: Brien Lynn MD at 14:46 EST ,
== END | disposition home or self-care (01) ==
LOC: OPBD 10:35
PROVIDERS: PCP Family Medicine; Visit Provider Family Medicine
DX: M81.0 Age-related osteoporosis without current pathological fracture (principal)
CPT/HCPCS: 77080

== ENCOUNTER 2022-09-15 08:26 | Day surgery (SDC) | payer MEDICARE, OTHER, SELFPAY ==
[2022-09-15 08:56] VITALS: BP 153/90; PULSE 97; RESP 16; TEMP 36.3; O2SAT 97; BMI 18.5
[2022-09-15] MEDS: Lactated Ringers 1,000 ML 15 ML IV (08:56)
--- NOTE | 2022-09-15 09:39 | HP.PCM_ITS ---
History and Physical Date of Admission: 09/15/22 76 F who presents to the office today for 5 month f/u hx of well-differentiated adenocarcinoma of the rectosigmoid colon. She initially established with us in June 2021 for diarrhea.? Her father had colon cancer.? She had a history of positive Cologuard in 2018 but has never had a colonoscopy due to fear of receiving a cancer diagnosis.? Dr. Quintana did colonoscopy in July 2021, finding a malignant-appearing partially obstructing tumor in the rectosigmoid colon; pathology report was tubulovillous adenoma.? Colorectal surgeon at [facility] did resection in August 2021; pathology was tubulovillous adenoma with high- grade dysplasia and focal well differentiated adenocarcinoma extending into the superficial submucosa. She met with oncologist Dr Wallis on 11/17/21 at [facility] Akanksha: pT1? pN0 MX stage I well-differentiated adenocarcinoma of the rectosigmoid colon, status post emergent laparoscopic assisted low anterior rectosigmoid resection with rigid sigmoidoscopy on 09/14/2021. Per Dr. Wallis's note, no clear indication for genetic testing, no indication for adjuvant chemotherapy, no indication for routine medical oncologic surveillance.? He recommends repeat colonoscopy at 1 year. Her weight is stable. No GI complaints. Denies abd or rectal pain. No nausea, vomiting, dysphagia, heartburn. No constipation, diarrhea, melena, hematochezia. ROS Const Constitutional: No body ache, chills, excessive sweating, fatigue, fever(s), frequent falls, headache(s), snoring, weakness, sleep problems or change in appetite Eyes Eyes: No blurry vision, change in vision, eye pain or Light sensitivity ENT ENT: No abnormal hearing, ear or mastoid pain, tinnitus, nasal congestion, headache(s), neck pain or sore throat Resp Respiratory: No cough, shortness of breath, snoring or wheezing Cardio Cardiology: No chest pain at rest, chest pain with exertion, excessive sweating, shortness of breath, dyspnea on exertion, lightheadedness, orthopnea or palpitations Gastro GI: No abdominal pain, change in bowel habits, constipation, cramping, diarrhea, Vomiting blood/hematemesis or vomiting Genitourinary-Female: No burning urination, painful urination, urinary incontinence or blood in urine Musc Musculoskeletal: No abnormal gait, joint pain, back pain, limited range of motion, neck pain, numbness or tingling Skin Skin: No dry skin, redness, lesions, itchy eyes, rash or wounds Breast Breast: No change in breast shape, breast lump, breast pain, breast skin changes, breast swelling or nipple discharge Neuro Neurology: No abnormal gait, abnormal hearing, weakness, frequent falls, headache(s), numbness or tingling Psych Psychiatric: No anxiety, No change in appetite, No depression and No Thoughts of harming yourself/Others Endo Endocrine: No excessive sweating, fatigue, flushing, heat intolerance, increased thirst/drinking or increased hunger Aller/Imm Allergy/Immunologic: No itchy eyes, seasonal allergy symptoms, hives or wheezing Ed/Lymp Hematologic/Lymphatic: No easy bleeding, easy bruising or enlarged lymph nodes Exam Const General: cooperative, healthy appearing and comfortable Nutritional Appearance: average body habitus Orientation: alert, awake and oriented x3 HENMT Head: normal to inspection Eyes Sclera: sclerae normal Resp Effort & Inspection: normal respiratory effort GI Inspection: normal to inspection Palpation: soft, no hepatosplenomegaly, no masses and nontender Skin General: no jaundice Neuro Speech: speech normal Gait: normal gait Psych Mood: congruent mood Quality Reporting Tobacco Screening ([facility] 138) Smoking Status: Never smoker Assessment and Plan Assessment and Plan (1) Adenocarcinoma of sigmoid colon: ?Status:?Acute ?Plan: 76 yr old female with hx of well-differentiated adenocarcinoma of the re ctosigmoid colon resected in 08/2021. She will have colonoscopy for 08/2022, office f/u 2 wks later I have examined the patient and the H&P has been reviewed. There are no clinical changes since date of exam.
--- NOTE | 2022-09-15 09:45 | COLBX_PTH ---
PATIENT: MADELINE HODGSON LOC: EN U#:[id number] AGE/SX: 76/F ROOM: RE09/15/[address]: Dr. Yann Quintana DO : 1945 BED: DIS: 09/15/2022 SPEC #: [id number] RECD: 09/15/22 11:00 STATUS: MICHAEL REChrista #: [id number] ROVERTO: 09/15/22 09:[address]: Yann Quintana DEPT: SURGICAL PATHOLOGY RECD BY: Bronson Allan ENTERED: 09/15/22 11:40 SP TYPE: COLON BX OTHR DR: Dr. Pito Fung DO Tissues: A - Cecum, NOS B - SPLENIC FLEXURE C - COLON BIOPSY Procedures: Surgery Specimen Level IV HEADER OPERATION: Colonoscopy (MAC) with polypectomy and clips PRE-OP DIAGNOSIS: Adenocarcinoma of sigmoid colon TISSUE SUBMITTED: A ? Cecum polyp, B ? Splenic flexure biopsy, C ? Anastomosis biopsy MICROSCOPIC DIAGNOSIS A. Cecal polyp, biopsy: Fragments of hyperplastic polyp. B. Splenic flexure, biopsy: Fragments of hyperplastic polyp. C. Anastomotic site, biopsy: Melanosis coli and minimal glandular distortion. AM:hilario 09/16/2022 MICROSCOPIC DESCRIPTION Slides are reviewed. GROSS DESCRIPTION A - Received in fixative is one container labeled with the patient's name and designated cecum polyp. The specimen consists of multiple irregular fragments of light flores soft tissue that in aggregate measure 2.5 x 1.0 x 0.3 cm. The specimen is totally submitted in one cassette. B - Received in fixative is one container labeled with the patient's name and designated splenic flexure biopsy. The specimen consists of multiple irregular fragments of light flores soft tissue that in aggregate measure 0.8 x 0.5 x 0.1 cm. The specimen is totally submitted in one cassette. C - Received in fixative is one container labeled with the patient's name and designated anastomosis biopsy. The specimen consists of multiple irregular fragments of light flores soft tissue that in aggregate measure 0.5 x 0.5 x 0.1 cm. The specimen is totally submitted in one cassette. / REMY:hilario 09/15/2022 TC:5 CPT: 85223 x3
--- NOTE | 2022-09-15 10:30 | OP.COLON_ITS ---
Patient Name: Evelyn Borges Procedure Date: 09/15/2022 9:41 AM Date of : 1945 Age: 76 Procedure: Colonoscopy Indications: Follow-up of colorectal cancer Providers: Yann Quintana DO Referring MD: Yann Quintana DO Medicines: Monitored Anesthesia Care Patient Profile: This is a 76 year old female. Refer to note in patient chart for documentation of history and physical. Last Colonoscopy: 1 year ago. Complications: No immediate complications. Procedure: Pre-Anesthesia Assessment: - Prior to the procedure, a History and Physical was performed, and patient medications and allergies were reviewed. The risks and benefits of the procedure and the sedation options and risks were discussed with the patient. All questions were answered and informed consent was obtained. Patient identification and proposed procedure were verified by the physician in the pre-procedure area. Mental Status Examination: alert and oriented. Airway Examination: normal oropharyngeal airway and neck mobility. Respiratory Examination: clear to auscultation. CV Examination: normal. Prophylactic Antibiotics: The patient does not require prophylactic antibiotics. Prior Anticoagulants: The patient has taken no previous anticoagulant or antiplatelet agents. After reviewing the risks and benefits, the patient was deemed in satisfactory condition to undergo the procedure. The anesthesia plan was to use monitored anesthesia care (MAC). Immediately prior to administration of medications, the patient was re-assessed for adequacy to receive sedatives. The heart rate, respiratory rate, oxygen saturations, blood pressure, adequacy of pulmonary ventilation, and response to care were monitored throughout the procedure. The physical status of the patient was re-assessed after the procedure. After I obtained informed consent, the scope was passed under direct vision. Throughout the procedure, the patient's blood pressure, pulse, and oxygen saturations were monitored continuously. The pediatric colonoscope was introduced through the anus and advanced to the cecum, identified by appendiceal orifice and ileocecal valve. The colonoscopy was performed without difficulty. The patient tolerated the procedure well. The quality of the bowel preparation was adequate. Scope In: 9:49:29 AM Scope Withdrawal Time 0 hours 25 minutes 3 seconds Scope Out: 10:22:34 AM Total Procedure Duration Time 0 hours 33 minutes 5 seconds Findings: The perianal and digital rectal examinations were normal. There was evidence of a prior end-to-side colo-colonic anastomosis in the recto-sigmoid colon. This was patent and was characterized by healthy appearing mucosa. Biopsies were taken with a cold forceps for histology. Verification of patient identification for the specimen was done. Estimated blood loss was minimal. A 30 mm polyp was found in the splenic flexure. The polyp was sessile. Biopsies were taken with a cold forceps for histology. Area was successfully injected with 5 mL Uyen ink for tattooing. Estimated blood loss was minimal. Biopsies were taken with a cold forceps for histology. Verification of patient identification for the specimen was done. Estimated blood loss was minimal. A 18 mm polyp was found in the cecum. The polyp was sessile. The polyp was removed with a hot snare. Resection and retrieval were complete. To prevent bleeding post-intervention, two hemostatic clips were successfully placed. There was no bleeding at the end of the procedure. The transverse colon, hepatic flexure and ascending colon were moderately redundant. A few small-mouthed diverticula were found in the sigmoid colon. Impression: - Patent end-to-side colo-colonic anastomosis, characterized by healthy appearing mucosa. Biopsied. - One 30 mm polyp at the splenic flexure. Biopsied. Injected. - One 18 mm polyp in the cecum, removed with a hot snare. Resected and retrieved. Clips were placed. - Redundant colon. - Diverticulosis in the sigmoid colon. Recommendation: - Discharge patient to home. - Resume previous diet. - Continue present medications. - Await pathology results. - Repeat colonoscopy in 4 months for surveillance. Procedure Code(s): --- Professional --- 44526, Colonoscopy, flexible; with removal of tumor(s), polyp(s), or other lesion(s) by snare technique 65088, 59, Colonoscopy, flexible; with biopsy, single or multiple 04227, Colonoscopy, flexible; with directed submucosal injection(s), any substance CPT copyright 2017 [employer]. All rights reserved. The codes documented in this report are preliminary and upon dairy farm manager review may be revised to meet current compliance requirements. Yann Quintana DO 09/15/2022 10:30:24 AM This report has been signed electronically. Number of Addenda: 0 Note Initiated On: 09/15/2022 9:41 AM
--- NOTE | 2022-09-15 10:31 | OP.CCLET_ITS ---
09/15/2022 Pito Fung Re : Colonoscopy procedure for Evelyn Borges Dear Dr. Fung This procedure was performed on Thursday, September 15, 2022. My impressions and recommendations are as follows: Impressions : - Patent end-to-side colo-colonic anastomosis, characterized by healthy appearing mucosa. Biopsied. - One 30 mm polyp at the splenic flexure. Biopsied. Injected. - One 18 mm polyp in the cecum, removed with a hot snare. Resected and retrieved. Clips were placed. - Redundant colon. - Diverticulosis in the sigmoid colon. Recommendations : - Discharge patient to home. - Resume previous diet. - Continue present medications. - Await pathology results. - Repeat colonoscopy in 4 months for surveillance. My findings are described in the full procedure note, which is enclosed. If I can be of further assistance, please feel free to contact me at . Sincerely, Yann Quintana, 09/15/2022 10:30:24 AM This report has been signed electronically.
[2022-09-15 10:32] VITALS: BP 109/79; BP 153/90; PULSE 64; RESP 18; TEMP 36.6; O2SAT 100
[2022-09-15 10:36] VITALS: BP 128/82; BP 153/90; PULSE 63; RESP 18; O2SAT 98
[2022-09-15 10:40] VITALS: BP 126/73; BP 153/90; PULSE 67; RESP 18; O2SAT 96
[2022-09-15 10:43] VITALS: BP 129/67; BP 153/90; PULSE 61; RESP 18; TEMP 36.9; O2SAT 100
[2022-09-15 11:14] VITALS: BP 153/90
== END 2022-09-15 11:40 | disposition home or self-care (01) ==
LOC: EN 08:31 → AC 08:31
PROVIDERS: PCP Family Medicine; Referring Provider Internal Medicine Gastroenterology; Visit Provider Internal Medicine Gastroenterology
PROC: 0DJD8ZZ Inspection of Lower Intestinal Tract, Via Natural or Artificial Opening Endoscopic (ICD-10-PCS; CPT 45378; principal; 2022-09-15 09:40)
DX: K57.30 Diverticulosis of large intestine without perforation or abscess without bleeding (principal); K63.5 Polyp of colon; I10 Essential (primary) hypertension; Z79.899 Other long term (current) drug therapy; Z80.0 Family history of malignant neoplasm of digestive organs; Z86.010 Personal history of colon polyps
CPT/HCPCS: 45385; 45380; 45381; 88305; J7120; A4648; J2405

== ENCOUNTER 2023-01-11 10:35 | Day surgery (SDC) | payer MEDICARE, OTHER, SELFPAY ==
[2023-01-11 11:04] VITALS: BP 129/78; PULSE 77; RESP 18; TEMP 36.8; O2SAT 100; BMI 18.8
[2023-01-11] MEDS: Lactated Ringers 1,000 ML 15 ML IV (11:13)
--- NOTE | 2023-01-11 12:00 | COLBX_PTH ---
PATIENT: MADELINE HODGSON LOC: EN U#:[id number] AGE/SX: 77/F ROOM: RE01/11/[address]: Dr. Yann Quintana DO : 1945 BED: DIS: 01/11/2023 SPEC #: [id number] RECD: 01/11/23 15:17 STATUS: MICHAEL REChrista #: [id number] ROVERTO: 01/11/23 12:[address]: Yann Quintana DEPT: SURGICAL PATHOLOGY RECD BY: Bronson Allan ENTERED: 01/12/23 10:45 SP TYPE: COLON BX ZURDO DR: Dr. Pito Fung DO Tissues: A - COLON BIOPSY B - Sigmoid colon biopsy Procedures: Surgery Specimen Level IV HEADER OPERATION: Colonoscopy (MAC), polypectomy PRE-OP DIAGNOSIS: Colon polyps, history of colorectal cancer TISSUE SUBMITTED: A - Hepatic flexure polyp biopsy and snare, B - Sigmoid polyp biopsy and snare MICROSCOPIC DIAGNOSIS A. Hepatic flexure polyp, biopsy and snare: Fragments of hyperplastic polyp. B. Sigmoid colon polyp, biopsy and snare: Fragments of hyperplastic polyp. REMY:hilario 01/13/2023 MICROSCOPIC DESCRIPTION Slides are reviewed. GROSS DESCRIPTION A - Received in fixative is one container labeled with the patient's name and designated hepatic flexure polyp. The specimen consists of multiple irregular fragments of light flores soft tissue that in aggregate measure 1.5 x 0.6 x 0.2 cm. The specimen is totally submitted in one cassette. B - Received in fixative is one container labeled with the patient's name and designated sigmoid polyp. The specimen consists of multiple irregular fragments of light flores soft tissue that in aggregate measure 1.8 x 0.3 x 0.1 cm. The specimen is totally submitted in one cassette. / REMY:hilario 01/12/2023 TC:1 CPT: 11025 x2
--- NOTE | 2023-01-11 12:29 | HP.PCM_ITS ---
History and Physical Date of Admission: 01/11/23 76 F who presents to the office today for discussion of findings from recent colonoscopy that was indicated to f/u well-differentiated adenocarcinoma of the rectosigmoid colon. 08/2022 colonoscopy revealed patent end-to-side colo-colonic anastomosis, characterized by healthy appearing mucosa; 30 mm hyperplastic polyp at splenic flexure, 18 mm hyperplastic polyp in cecum. Dr Quintana recommends repeat colonoscopy in 4 mos. She initially established with us in June 2021 for diarrhea.? Her father had colon cancer.? She had a history of positive Cologuard in 2018 but has never had a colonoscopy due to fear of receiving a cancer diagnosis.? Dr. Quintana did colonoscopy in July 2021, finding a malignant-appearing partially obstructing tumor in the rectosigmoid colon; pathology report was tubulovillous adenoma.? She had acute rectal prolapse of the tumor mass which colorectal surgeon Dr Francesco Spears at [place] reduced under anesthesia in 08/2021. He then did laparoscopically assisted low anterior rectosigmoid resection; pathology was tubulovillous adenoma with high-grade dysplasia and focal well differentiated adenocarcinoma extending into the superficial submucosa. All 14 lymph nodes removed were negative. She met with oncologist Dr Wallis on 11/17/21 at [facility] Akanksha: pT1? pN0 MX stage I well-differentiated adenocarcinoma of the rectosigmoid colon. Per Dr. Wallis's note, no clear indication for genetic testing, no indication for adjuvant chemotherapy, no indication for routine medical oncologic surveillance.? Her weight is stable. No GI complaints. Denies abd or rectal pain. No nausea, vomiting, dysphagia, heartburn. No constipation, diarrhea, melena, hematochezia. 09/15/22 Colonoscopy Impression: ? - Patent end-to-side colo-colonic anastomosis, ? characterized by healthy appearing mucosa. ? Biopsied. ? - One 30 mm polyp at the splenic flexure. ? Biopsied. Injected. ? - One 18 mm polyp in the cecum, removed with a ? hot snare. Resected and retrieved. Clips were ? placed. ? - Redundant colon. ? - Diverticulosis in the sigmoid colon. MICROSCOPIC DIAGNOSIS A. Cecal polyp, biopsy: Fragments of hyperplastic polyp. B. Splenic flexure, biopsy: Fragments of hyperplastic polyp. C. Anastomotic site, biopsy: Melanosis coli and minimal glandular distortion ROS Const Constitutional: No fatigue ENT ENT: No difficulty swallowing Gastro GI: No abdominal pain, belching, bloating, change in bowel habits, change in stool character, coffee ground emesis, constipation, cramping, diarrhea, heartburn, difficulty swallowing, feeling full early, excessive flatus, incontinent of stools, Vomiting blood/hematemesis, Blood in stool, loose stools, Black,tarry stools, nausea/dyspepsia, pain with swallowing, vomiting or other Musc Musculoskeletal: No joint pain Skin Skin: No yellowing of the eye or itchy eyes Psych Psychiatric: No anxiety and No depression Endo Endocrine: No fatigue Aller/Imm Allergy/Immunologic: No itchy eyes Ed/Lymp Hematologic/Lymphatic: No easy bleeding or easy bruising Exam Const General: cooperative, healthy appearing and anxious Orientation: alert, awake and oriented x3 Quality Reporting Tobacco Screening ([facility] 138) Smoking Status: Never smoker Assessment and Plan Assessment and Plan (1) Colon polyps: Status: Acute Plan: 76 yr old female with hx of well-differentiated adenocarcinoma of the rectosigmo id colon. Her one-yr f/u colonoscopy revealed a 30 mm hyperplastic polyp at splenic flexure and and an 18 mm hyperplastic polyp in cecum.?Dr Quintana recommends repeat colonoscopy in 4 mos, she is scheduled for that. I assured her I will share her results with Dr Spears. (2) History of colorectal cancer: Status: Acute Plan: see above I have examined the patient and the H&P has been reviewed. There are no clinical changes since date of exam.
[2023-01-11 13:08] VITALS: BP 129/78; BP 99/63; PULSE 64; RESP 12; TEMP 36.5; O2SAT 98
[2023-01-11 13:10] VITALS: BP 129/78; BP 93/60; PULSE 64; RESP 18; O2SAT 99
--- NOTE | 2023-01-11 13:14 | OP.CCLET_ITS ---
01/11/2023 Pito Fung Re : Colonoscopy procedure for Evelyn Borges Dear Dr. Fung This procedure was performed on Wednesday, January 11, 2023. My impressions and recommendations are as follows: Impressions : - Patent end-to-end colo-colonic anastomosis, characterized by healthy appearing mucosa. Biopsied. - Three 1 to 2 mm polyps in the sigmoid colon and at the hepatic flexure, removed with a hot snare. Resected and retrieved. Clip was placed. Clip track walker: Fareye. Recommendations : - Repeat colonoscopy in 1 year for surveillance. - Continue present medications. My findings are described in the full procedure note, which is enclosed. If I can be of further assistance, please feel free to contact me at . Sincerely, Yann Quintana, 01/11/2023 1:14:05 PM This report has been signed electronically.
--- NOTE | 2023-01-11 13:14 | OP.COLON_ITS ---
Patient Name: Evelyn Borges Procedure Date: 01/11/2023 12:27 PM Date of : 1945 Age: 77 Procedure: Colonoscopy Indications: High risk colon cancer surveillance: Personal history of colon cancer Providers: Yann Quintana DO Medicines: Monitored Anesthesia Care Patient Profile: This is a 77 year old female. Refer to note in patient chart for documentation of history and physical. Last Colonoscopy: 2021. Complications: No immediate complications. Procedure: Pre-Anesthesia Assessment: - Prior to the procedure, a History and Physical was performed, and patient medications and allergies were reviewed. The risks and benefits of the procedure and the sedation options and risks were discussed with the patient. All questions were answered and informed consent was obtained. Patient identification and proposed procedure were verified by the physician in the pre-procedure area. Mental Status Examination: alert and oriented. Airway Examination: normal oropharyngeal airway and neck mobility. Respiratory Examination: clear to auscultation. CV Examination: normal. Prophylactic Antibiotics: The patient does not require prophylactic antibiotics. Prior Anticoagulants: The patient has taken no anticoagulant or antiplatelet agents. ASA Grade Assessment: II - A patient with mild systemic disease. After reviewing the risks and benefits, the patient was deemed in satisfactory condition to undergo the procedure. The anesthesia plan was to use monitored anesthesia care (MAC). Immediately prior to administration of medications, the patient was re-assessed for adequacy to receive sedatives. The heart rate, respiratory rate, oxygen saturations, blood pressure, adequacy of pulmonary ventilation, and response to care were monitored throughout the procedure. The physical status of the patient was re-assessed after the procedure. After I obtained informed consent, the scope was passed under direct vision. Throughout the procedure, the patient's blood pressure, pulse, and oxygen saturations were monitored continuously. The pediatric colonoscope was introduced through the anus and advanced to the cecum, identified by appendiceal orifice and ileocecal valve. The colonoscopy was performed without difficulty. The patient tolerated the procedure well. The quality of the bowel preparation was adequate. The ileocecal valve, appendiceal orifice, and rectum were photographed. Scope In: 12:37:18 PM Scope Withdrawal Time 0 hours 19 minutes 59 seconds Scope Out: 1:00:46 PM Total Procedure Duration Time 0 hours 23 minutes 28 seconds Findings: The perianal and digital rectal examinations were normal. There was evidence of a prior end-to-end colo-colonic anastomosis in the recto-sigmoid colon. This was patent and was characterized by healthy appearing mucosa. The anastomosis was traversed. Biopsies were taken with a cold forceps for histology. Verification of patient identification for the specimen was done. Estimated blood loss was minimal. Three sessile polyps were found in the sigmoid colon and hepatic flexure. The polyps were 1 to 2 mm in size. These polyps were removed with a hot snare. Resection and retrieval were complete. Verification of patient identification for the specimen was done. To prevent bleeding post-intervention, one hemostatic clip was successfully placed. Clip health technician hearing: Onyu. There was no bleeding at the end of the procedure. Impression: - Patent end-to-end colo-colonic anastomosis, characterized by healthy appearing mucosa. Biopsied. - Three 1 to 2 mm polyps in the sigmoid colon and at the hepatic flexure, removed with a hot snare. Resected and retrieved. Clip was placed. Clip health technician hearing: Onyu. Recommendation: - Repeat colonoscopy in 1 year for surveillance. - Continue present medications. Procedure Code(s): --- Professional --- 83248, Colonoscopy, flexible; with removal of tumor(s), polyp(s), or other lesion(s) by snare technique [id number], 59, Colonoscopy, flexible; with biopsy, single or multiple CPT copyright 2021 [employer] [employer]. All rights reserved. The codes documented in this report are preliminary and upon block hacker review may be revised to meet current compliance requirements. Yann Quintana DO 01/11/2023 1:14:05 PM This report has been signed electronically. Number of Addenda: 0 Note Initiated On: 01/11/2023 12:27 PM
[2023-01-11 13:16] VITALS: BP 129/78; BP 99/62; PULSE 60; RESP 18; O2SAT 99
[2023-01-11 13:20] VITALS: BP 102/62; BP 129/78; PULSE 61; RESP 18; TEMP 35.9; O2SAT 100
[2023-01-11 13:36] VITALS: BP 129/78
== END 2023-01-11 14:07 | disposition home or self-care (01) ==
LOC: EN 10:36 → AC 10:37
PROVIDERS: PCP Family Medicine; Referring Provider Family Medicine; Visit Provider Internal Medicine Gastroenterology
PROC: 0DJD8ZZ Inspection of Lower Intestinal Tract, Via Natural or Artificial Opening Endoscopic (ICD-10-PCS; CPT 45378; principal; 2023-01-11 11:55)
DX: Z12.11 Encounter for screening for malignant neoplasm of colon (principal); K63.5 Polyp of colon; Z85.038 Personal history of other malignant neoplasm of large intestine
CPT/HCPCS: 45385; 45380; 88305; J7120; J2405

== ENCOUNTER → 2023-05-18 | Outpatient (CLI) | payer MEDICARE, OTHER, SELFPAY ==
--- OUTSIDE RECORDS SUMMARY | 2023-05-18 10:18 | XMS RPT_ITS | CCD ---
Author Name Unknown Address [address] [place] [address] Organization [facility] Care Team Providers Care Pricing Director Name Role Phone SHANNON FUNG DO Primary Care Physician Unavailable Primary Care Provider Unavailabl e SHANNON FUNG DO Primary Care Physician Shannon Fung DO Primary Care Provider Shannon Fung DO Primary Care Provider SHANNON FUNG DO Primary Care Unavailable NANCY MEZA Attending Unava ilable PICCARI MAP CLERK-MULTIPLE PRESSURE RIVETER OPERATOR, OSMAN Nascimento Attending Unav ailSHANNON Nj DO Primary Care Unavailable PICCARI MAP CLERK-IVIS, OSMAN Nascimento Attending Unav ailable SHANNON FUNG DO Primary Care Unavailable Medications Current Medications Medication Drug Class(es) Dates Sig (Normalized) Sig (Original) Calcium and Magnesium oral tablet (6 sources) Start: 05-21-2021 take 1 tablet by mouth once daily Calcium and Magnesium oral tablet Dose = 1 tab(s), Oral, qDay, # 30 tab(s), 0 Refill(s) Start Date: 05/21/21 Status: Ordered Chondroitin Sulfates / Glucosamine (6 sources) Start: 05-21-2021 take 1 capsule by mouth once daily Glucosamine Chondroitin oral capsule Dose = 3 cap(s), Oral, qDay, # 50 cap(s), 0 Refill(s) Start Date: 05/21/21 Status: Ordered Coenzyme Q10 200 mg oral capsule (6 sources) Start: 05-21-2021 take 1 capsule by mouth once, then take 1 capsule by mouth twice daily Coenzyme Q10 200 mg oral capsule Dose : 200 mg = 1 cap(s), Oral, BID, 0 Refill(s) Start Date: 05/21/21 Status: Ordered Cranberry preparation (8 sources) Non-Standardized Food Allergenic Extract, Non-Standardized Plant Allergenic Extract Start: 05-21-2021 take 1 capsule by mouth once daily cranberry oral capsule Dose = 1 cap(s), Oral, Daily, 0 Refill(s) Start Date: 05/21/21 Status: Ordered Completed/Discontinued Medications Medication Drug Class(es) Dates Sig (Normalized) Sig (Original) calcium/magnesium (CALCIUM AND MAGNESIUM ORAL) (2 sources) Start: 05-21-2021 calcium/magnesium (CALCIUM AND MAGNESIUM ORAL) Take by mouth once daily. 0 05/21/2021 Active Problems Active Problems Problem Classification Problem Date Documented Date Episodic/Chronic Acute posthemorrhagic anemia (1 source) Acute posthemorrhagic anemia; Translations: [Acute posthemorrhagic anemia] Episodic Cancer of colon (4 sources) Malignant tumor of colon; Translations: [Malignant neoplasm of colon, unspecified] Onset: 09-17-2021 Chronic Essential hypertension (7 sources) Essential hypertension; Translations: [Essential (primary) hypertension] Chronic Hemorrhoids (6 sources) Prolapsed internal hemorrhoids 06-11-2021 Episodic Other and unspecified benign neoplasm (1 source) History of polyp of colon 02-03-2022 Episodic Other and unspecified benign neoplasm (1 source) Tubular adenoma 08-09-2022 Episodic Past or Other Problems Problem Classification Problem Date Documented Da te Episodic/Chronic Anal and rectal conditions (11 sources) Rectal prolapse; Translations: [Rectal prolapse] Onset: 05-14-2021 Episodic Genitourinary symptoms and ill-defined conditions (8 sources) Retention of urine; Translations: [Retention of urine, unspecified] Onset: 09-17-2021 Episodic Results Test Name Value Interpretation Reference Range Facil ity Vital Signs Date Time Vital Sign Value Performing Clinician Facility 12-30-2021 10:06-0400 Body temperature 97.2 [degF] Carmelita Blanc APRN.CNP Work Phone: [facility] 12-30-2021 10:06-0400 Body weight 47.85 kg Carmelita Blanc APRN.CNP Work Phone: [facility] 12-30-2021 10:06-0400 Diastolic blood pressure 76 mm[Hg] Carmelita Blanc APRN.CNP Work Phone: [facility] 12-30-2021 10:06-0400 Heart rate 80 /min Carmelita Blanc MAP CLERK.MULTIPLE PRESSURE RIVETER OPERATOR Work Phone: [facility] 12-30-2021 10:06-0400 SaO2% (BldA) [Mass fraction] 99 % Carmelita Blanc MAP CLERK.MULTIPLE PRESSURE RIVETER OPERATOR Work Phone: [facility] 12-30-2021 10:06-0400 Systolic blood pressure 158 mm[Hg] Carmelita Blanc MAP CLERK.MULTIPLE PRESSURE RIVETER OPERATOR Work Phone: [facility] 11-17-2021 14:10-0400 Body height 159 cm Duong Rennyi DO Work Phone: [facility] 11-17-2021 14:10-0400 Body temperature 98.29 [degF] Duong Masci DO Work Phone: [facility] 11-17-2021 14:10-0400 Body weight 46.72 kg Duong Masci DO Work Phone: [facility] 11-17-2021 14:10-0400 Diastolic blood pressure 81 mm[Hg] Duong Masci DO Work Phone: [facility] 11-17-2021 14:10-0400 Heart rate 95 /min Duong Masci DO Work Phone: [facility] 11-17-2021 14:10-0400 SaO2% (BldA) [Mass fraction] 96 % Duong Masci DO Work Phone: [facility] 11-17-2021 14:10-0400 Systolic blood pressure 138 mm[Hg] Duong Masci DO Work Phone: [facility] 09-18-2021 06:47-0400 Body temperature 97.88 [degF] ISAI ABRAHAM MD [facility] 09-18-2021 06:47-0400 Diastolic blood pressure 74 mm[Hg] ISAI ABRAHAM MD [facility] 09-18-2021 06:47-0400 Heart rate 69 /min ISAI ABRAHAM MD [facility] 09-18-2021 06:47-0400 Reason For Taking VItal Signs ISAI ABRAHAM MD [facility] 09-18-2021 06:47-0400 Respiratory rate 16 /min ISAI ABRAHAM MD [facility] 09-18-2021 06:47-0400 Systolic blood pressure 130 mm[Hg] ISAI ABRAHAM MD [facility] 09-18-2021 03:35-0400 Body weight 50.8 kg ISAI ABRAHAM MD [facility] 09-17-2021 23:30-0400 Body temperature 98.24 [degF] ISAI ABRAHAM MD [facility] 09-17-2021 23:30-0400 Diastolic blood pressure 76 mm[Hg] ISAI ABRAHAM MD [facility] 09-17-2021 23:30-0400 Heart rate 82 /min ISAI ABRAHAM MD [facility] 09-17-2021 23:30-0400 Reason For Taking VItal Signs ISAI ABRAHAM MD [facility] 09-17-2021 23:30-0400 Respiratory rate 16 /min ISAI ABRAHAM MD [facility] 09-17-2021 23:30-0400 Systolic blood pressure 118 mm[Hg] ISAI ABRAHAM MD [facility] 09-17-2021 16:23-0400 Body temperature 98.24 [degF] ISAI ABRAHAM MD [facility] 09-17-2021 16:23-0400 Diastolic blood pressure 75 mm[Hg] ISAI ABRAHAM MD [facility] 09-17-2021 16:23-0400 Heart rate 90 /min ISAI ABRAHAM MD [facility] 09-17-2021 16:23-0400 Reason For Taking VItal Signs ISAI ABRAHAM MD [facility] 09-17-2021 16:23-0400 Respiratory rate 16 /min ISAI ABRAHAM MD [facility] 09-17-2021 16:23-0400 Systolic blood pressure 139 mm[Hg] ISAI ABRAHAM MD [facility] 09-17-2021 13:52-0400 Body weight 20.56 kg/m2 ISAI ABRAHAM MD [facility] 09-17-2021 03:29-0400 Body weight 51 kg ISAI ABRAHAM MD [facility] 09-17-2021 03:16-0400 Heart rate 71 /min ISAI ABRAHAM MD [facility] 09-17-2021 00:10-0400 Mean blood pressure 83 mm[Hg] ISAI ABRAHAM MD [facility] 09-16-2021 19:30-0400 Mean blood pressure 92 mm[Hg] ISAI ABRAHAM MD [facility] 09-16-2021 05:07-0400 Body weight 51.7 kg ISAI ABRAHAM MD [facility] 09-15-2021 10:12-0400 Mean blood pressure 75 mm[Hg] ISAI ABRAHAM MD [facility] 09-15-2021 10:12-0400 Signs/Symptoms Transfusion Reaction ISAI ABRAHAM MD [facility] 09-15-2021 09:54-0400 Signs/Symptoms Transfusion Reaction ISAI ABRAHAM MD [facility] 09-15-2021 09:28-0400 Signs/Symptoms Transfusion Reaction ISAI ABRAHAM MD [facility] 09-15-2021 04:03-0400 Heart rate 82 /min ISAI ABRAHAM MD [facility] 09-15-2021 00:08-0400 Heart rate 86 /min ISAI ABRAHAM MD [facility] 09-14-2021 19:45-0400 Diastolic Blood Pressure NBP 59 1 ISAI ABRAHAM MD [facility] 09-14-2021 19:45-0400 Systolic Blood Pressure NBP 108 1 ISAI ABRAHAM MD [facility] 09-14-2021 19:43-0400 Diastolic Blood Pressure NBP 59 1 ISAI ABRAHAM MD [facility] 09-14-2021 19:43-0400 Mean blood pressure 71 mm[Hg] ISAI ABRAHAM MD [facility] 09-14-2021 19:43-0400 Systolic Blood Pressure NBP 108 1 ISAI ABRAHAM MD [facility] 09-14-2021 18:47-0400 Diastolic Blood Pressure NBP 60 1 ISAI ABRAHAM MD [facility] 09-14-2021 18:47-0400 Mean blood pressure 69 mm[Hg] ISAI ABRAHAM MD [facility] 09-14-2021 18:47-0400 Systolic Blood Pressure NBP 109 1 SIAI ABRAHAM MD [facility] 09-14-2021 18:30-0400 Diastolic blood pressure 63 mm[Hg] ISAI ABRAHAM MD [facility] 09-14-2021 18:30-0400 Mean blood pressure 96 mm[Hg] ISAI ABRAAHM MD [facility] 09-14-2021 18:30-0400 Systolic blood pressure 137 mm[Hg] ISAI ABRAHAM MD [facility] 09-14-2021 18:20-0400 Diastolic blood pressure 65 mm[Hg] ISAI ABRAHAM MD [facility] 09-14-2021 18:20-0400 Mean blood pressure 96 mm[Hg] ISAI ABRAHAM MD [facility] 09-14-2021 18:20-0400 Mean blood pressure 88 mm[Hg] ISAI ABRAHAM MD [facility] 09-14-2021 18:20-0400 Systolic blood pressure 138 mm[Hg] ISAI ABRAHAM MD [facility] 09-14-2021 18:15-0400 Diastolic blood pressure 63 mm[Hg] ISAI ABRAHAM MD [facility] 09-14-2021 18:15-0400 Mean blood pressure 94 mm[Hg] ISAI ABRAHAM MD [facility] 09-14-2021 18:15-0400 Systolic blood pressure 135 mm[Hg] ISAI ABRAHAM MD [facility] 09-14-2021 17:46-0400 Body temperature 99.32 [degF] ISAI ABRAHAM MD [facility] 09-14-2021 17:10-0400 Body temperature 97.7 [degF] ISAI ABRAHAM MD [facility] 09-14-2021 17:05-0400 Body temperature 97.83 [degF] ISAI ABRAHAM MD [facility] 09-14-2021 17:00-0400 Body temperature 97.9 [degF] ISAI ABRAHAM MD [facility] 09-14-2021 16:23-0400 SaO2% (BldA) [Mass fraction] 96.9 % ISAI ABRAHAM MD [facility] 09-14-2021 13:16-0400 SaO2% (BldA) [Mass fraction] 96.5 % ISAI ABRAHAM MD [facility] 09-14-2021 07:43-0400 Body weight 18.91 kg/m2 ISAI ABRAHAM MD [facility] 09-14-2021 07:41-0400 Heart rate 68 /min ISAI ABRAHAM MD [facility] 09-12-2021 23:35-0400 Heart rate 80 /min ISAI ABRAHAM MD [facility] 09-11-2021 13:45-0400 Body height 157.5 cm ISAI ABRAHAM MD [facility] 09-11-2021 13:45-0400 Body weight 19.11 kg/m2 ISAI ABRAHAM MD [facility] 09-11-2021 13:14-0400 Body temperature 97.34 [degF] ISAI ABRAHAM MD [facility] 09-11-2021 12:27-0400 Body temperature 96.8 [degF] ISAI ABRAHAM MD [facility] 09-11-2021 11:22-0400 Body height 157.5 cm ISAI ABRAHAM MD [facility] 05-14-2021 08:56-0500 Diastolic blood pressure 90 mm[Hg] TATO SEGURA MD [facility] 05-14-2021 08:56-0500 Heart rate 94 /min TATO SEGURA MD [facility] 05-14-2021 08:56-0500 Respiratory rate 16 /min TATO SEGURA MD [facility] 05-14-2021 08:56-0500 Systolic blood pressure 123 mm[Hg] TATO SEGURA MD [facility] 05-14-2021 08:03-0500 Body height 157.5 cm TATO SEGURA MD [facility] 05-14-2021 08:03-0500 Body temperature 97.16 [degF] TATO SEGURA MD [facility] 05-14-2021 08:03-0500 Body weight 48 kg TATO SEGURA MD [facility] 05-14-2021 08:03-0500 Diastolic blood pressure 87 mm[Hg] TATO SEGURA MD [facility] 05-14-2021 08:03-0500 Heart rate 109 /min TATO SEGURA MD [facility] 05-14-2021 08:03-0500 Respiratory rate 16 /min TATO SEGURA MD [facility] 05-14-2021 08:03-0500 Systolic blood pressure 136 mm[Hg] TATO SEGURA MD [facility] Encounters Encounter Date Encounter Type Care Provider Facility Start: 11-15-2022 End: 11-16-2022 ambulatory SHANNON FUNG DO Facility:A Start: 11-15-2022 End: 11-15-2022 Patient encounter procedure NANCY WAYNE MAP CLERK-MULTIPLE PRESSURE RIVETER OPERATOR [facility] Start: 05-18-2022 End: 05-23-2022 ambulatory OSMAN MOSLEY MAP CLERK-MULTIPLE PRESSURE RIVETER OPERATOR Facility:[facility] Start: 12-30-2021 End: 12-30-2021 ambulatory Carmelita Blanc MAP CLERK.MULTIPLE PRESSURE RIVETER OPERATOR Work Phone: Hematology/Oncology Procedures Date Procedure Procedure Detail Performing Clinician Start: 09-14-2021 Low anterior resecti on of rectum OSMAN PICCARI MAP CLERK-MULTIPLE PRESSURE RIVETER OPERATOR Start: 09-14-2021 Procedure on rectosi gmoid colon OSMAN PICCARI MAP CLERK-MULTIPLE PRESSURE RIVETER OPERATOR Plan of Treatment Date Care Activity Detail Author Start: 12-31-2021 Influenza vaccination [facility] Start: 05-02-2021 ADVANCE DIRECTIVE DISCUSSION ADVANCE DIRECTIVE DISCUSSION [facility] Start: 2010 BONE DENSITY BONE DENSITY [facility] Start: 2010 PNEUMOCOCCAL: 65+ (1 - PCV) PNEUMOCOCCAL: 65+ (1 - PCV) [facility] Start: 10-15-1995 SHINGRIX VACCINE (1 of 2) RENAE GRIX VACCINE (1 of 2) [facility] Start: 1990 DIABETES SCREEN DIABETES SCREEN [facility] Start: 1964 Urine microalbumin profile DTAP,TDAP ,TD (1 - Tdap) [facility] Start: 10-15-1963 HEPATITIS C SCREENING HEPATITIS C SC REENING [facility] Start: 1957 Adult depression scr eening assessment DEPRESSION SCREENING [facility] Start: 1950 COVID-19 VACCINE (#1) COVID-19 VACCI NE (#1) [facility] Start: 04-15-1946 COVID-19 VACCINE (#1) COVID-19 VACCI NE (#1) [facility] [place] [facility] Payers Date Payer Category Payer Medicare [id number] 2022 Private Health Insurance [facility] [id number] 2018 Private Health Insurance [employer] A ETNA MEDICARE SUPPLEMENT [id number] 2018-Present [phone] [address] [address] [place] [address] Indemnity [id number] 2018 Private Health Insurance [employer] A ETNA MEDICARE SUPPLEMENT [id number] 2018-Present [phone] [address] [address] [place] [address] Indemnity [id number] 2010 Medicare MEDICARE MEDICAR E A AND B [id number] 2010-Present [phone] [place] [address] Medicare [id number] 2010 Medicare MEDICARE MEDICAR E A AND B [id number] 2010-Present [phone] [place] [address] Medicare [id number] 1945 Unknown [id number] 1945 Unknown [id number] 1945 Unknown [id number] Social History Date Type Detail Facility Start: 05-14-2021 End: 05-19-2021 Never smoked tobacco (finding) [facility] Assigned At [facility] Tobacco smoking stat [facility] Tobacco smoking consumption unknown [facility] Start: 1945 Sex Assigned At Not on file [facility] Start: 11-17-2021 Tobacco use and exposure Smokeless tobacco non-user [facility] Start: 11-17-2021 End: 12-30-2021 Alcohol intake Lifetime non-drinker (finding) [facility] Start: 11-17-2021 History SDOH Alcohol Frequency 1 [facility] Start: 11-07-2021 End: 11-17-2021 Exposure to SARS-CoV-2 (event) Not sure [facility] Functional Status Date Assessment Result Facility 09-18-2021 Functional [facility] 09-18-2021 [facility] 09-18-2021 [facility] 09-18-2021 [facility] 09-18-2021 [facility] 09-18-2021 [facility] 09-18-2021 [facility] 09-17-2021 [facility] 09-17[facility]21 [facility] 09-17[facility] 09-17[facility] 09[facility]17[facility] 09[facility]17[facility]21 [facility] 09[facility]17[facility]21 [facility] 09-16[facility]21 [facility] 09-16-2021 [facility] 09-16[facility]21 [facility] 09[facility]16-[facility] 09-16-2021 [facility] 09-15-2021 [facility] 09-15-2021 [facility] 09-14-2021 [facility] 09[facility]14-[facility]21 [facility] 09[facility]14-[facility]21 [facility] 09-14-2021 [facility] 09-14-2021 [facility] 09-14-2021 [facility] 09-13-2021 [facility] 09-13[facility]21 [facility] 09[facility]13[facility] 09-12-2021 [facility] 09-11-2021 [facility] 09-11-2021 [facility] Mental Status Date Assessment Result Facility 09-17-2021 [facility]-17[facility]16[facility] Clinical Notes 05-14-2021 to 05-20-2022 Carmelita Blanc APRN.MULTIPLE PRESSURE RIVETER OPERATOR - 12/30/2021 10:32 AM EDTPaul Shruti Wallis DO - 11/17/2021 2:00 PM EDTTelephone Tiesha - Nasreen Joe - 10/19/2021 11:34 AM EDT Note Date & Type Note Facility 05-20-2022 Note . MICRO - Microbiology PROCEDURE: Urine Culture [*1] SOURCE: Urine, Clean Catch BODY SITE: COLLECTED DATE/TIME: 05/18/2022 09:06 EST RECEIVED DATE/TIME: 05/18/2022 14:09 EST START DATE/TIME: 05/18/2022 14:10 EST FREE TEXT SOURCE: FINAL REPORTS Final Report [] Verified Date/Time/Personnel: 05/20/2022 07:49 EST No growth at 48 hours. PRELIMINARY REPORTS Preliminary Report [] Verified Date/Time/Personnel: 05/19/2022 09:42 EST No growth to date Performing Locations *1: This test was performed at: [facility], [address] [place] [address], [facility] , [facility] ([place]) 12-30-2021 Note HNO ID: [id number] Author: Carmelita Blanc APRN.MULTIPLE PRESSURE RIVETER OPERATOR Service: ? Author Type: Nurse Practitioner Type: Progress Notes Filed: 12/31/2021 8:14 AM Note Text: Chief Complaint Patient presents with: Established Patient HPI: Evelyn Borges is a 76 year old female who presents here today for SCP/colon cancer. Per Dr. Wallis's previous note: H/o hypertension, osteoporosis, internal prolapsed hemorrhoids, rectal prolapse and urinary retention. She evidently had been undergoing evaluation for prolapsing internal hemorrhoids and was noted to have extreme watery copious rectal discharge along with diarrhea. She was referred for colonoscopy that was performed in July and was found to have a large villous type mass in the area of the rectosigmoid colon. Superficial biopsies of the mass performed endoscopically revealed evidence of tubulovillous adenoma with no invasive cancer but due to the size of the mass it was felt there may be possibility of underlying invasive disease deeper within the mass. She had a CT of the chest, abdomen pelvis on 09/01/2021. Chest imaging revealed an 8.1 mm bulla in the right upper lobe. Remainder of the chest was unremarkable. In the abdomen there was a large amount of fecal material in the colon with a large soft tissue density in the rectum potentially representing either neoplastic mass versus fecal retention. Clinical correlation was recommended. Patient underwent colonoscopy on 08/20/2021. Report indicates the colonoscope was advanced all the way to the cecum identified by the appendiceal orifice and ileocecal valve as well as palpation. Findings included the perianal and digital rectal exams were normal. There was a frond-like villous partially obstructing large mass in the rectosigmoid colon. The mass was circumferential and measured 7 cm in length. In addition its diameter measured 6 mm. No bleeding was present. It was biopsied with cold forceps histology. The area was tattooed with an injection of 1 mL of Uyen ink. The entire examined colon appeared normal on direct and retroflexion views. Internal hemorrhoids were found during retroflexion. The hemorrhoids were grade 1. Impression was that of a malignant partially obstructing tumor in the rectosigmoid colon. The entire colon otherwise was normal on direct and retroflexion views. Internal hemorrhoids observed. Pathology demonstrated fragments of tubular adenoma. Patient then presented to the emergency room with acute prolapse of the entire mass and rectum externally. She underwent urgent laparoscopic assisted low anterior rectosigmoid resection with rigid sigmoidoscopy on 09/14/2021. The pathology demonstrated that within the rectosigmoid colon there was a tubulovillous adenoma with high-grade dysplasia and focal well differentiated adenocarcinoma extending into the superficial submucosa. Please see complete scanned pathology report for details. Briefly the tumor measured 10.5 cm in size. It was located in the rectosigmoid colon. Macroscopic tumor perforation was absent. Histologic type was colonic adenocarcinoma, grade 1. The tumor extended focally into the submucosa. Margins were free. There was no lymphovascular or perineural invasion. Tumor deposits were absent. 14 lymph nodes were retrieved. None were involved with disease. Had Ramsey out after 45 days. Urinating normally now--no incontinence; feels like she voids to completion. Bowel habits regular. Stools formed. Had root canal early September and had diarrhea the day after. No black or bloody stools. Good appetite. No new concerns today. Pt. here with family member. Appetite: Good Denies fevers or recent illness. Resp:denies cough or sob Cardiac:denies chest pain/palpitations GI:denies abd pain, n/v, moving bowels regularly :denies dysuria/hematuria Extrem:denies pain Neuro:denies symptoms of neuropathy Skin:denies rashes Heme:denies bleeding The ROS is otherwise negative. Past medical history, appointments, medications, allergies reviewed. No changes. EXAM: BP 158/76 Pulse 80 Temp 36.2 ?C (97.2 ?F) Wt 47.9 kg (105 lb 8 oz) SpO2 99% BMI 18.93 kg/m? APPEARANCE Well appearing, alert, in no acute distress, well-hydrated, well nourished. HEART RRR with normal S1 and S2, no murmurs LUNG clear to auscultation LYMPH NODES No cervical lymphadenopathy, No supraclavicular lymphadenopathy, and No axillary lymphadenopathy. ABDOMEN bowel sounds normoactive, soft, non-tender, non-distended, without organomegaly or palpable masses, no tenderness to palpation EXTREMITIES No edema NEURO Awake, alert and oriented x 3, Normal gait, and No involuntary motions. ASSESSMENT/PLAN: 1. 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 S/p urgent laparoscopic assisted low anterior rectosigmoid resection with rigid sigmoido (more content not included)... [facility] 12-30-2021 History of Presen t illness Narrative Chief Complaint Patient presents with: Established Patient HPI: Evelyn Borges is a 76 year old female who presents here today for SCP/colon cancer. Per Dr. Wallis's previous note: H/o hypertension, osteoporosis, internal prolapsed hemorrhoids, rectal prolapse and urinary retention. She evidently had been undergoing evaluation for prolapsing internal hemorrhoids and was noted to have extreme watery copious rectal discharge along with diarrhea. She was referred for colonoscopy that was performed in July and was found to have a large villous type mass in the area of the rectosigmoid colon. Superficial biopsies of the mass performed endoscopically revealed evidence of tubulovillous adenoma with no invasive cancer but due to the size of the mass it was felt there may be possibility of underlying invasive disease deeper within the mass. She had a CT of the chest, abdomen pelvis on 09/01/2021. Chest imaging revealed an 8.1 mm bulla in the right upper lobe. Remainder of the chest was unremarkable. In the abdomen there was a large amount of fecal material in the colon with a large soft tissue density in the rectum potentially representing either neoplastic mass versus fecal retention. Clinical correlation was recommended. Patient underwent colonoscopy on 08/20/2021. Report indicates the colonoscope was advanced all the way to the cecum identified by the appendiceal orifice and ileocecal valve as well as palpation. Findings included the perianal and digital rectal exams were normal. There was a frond-like villous partially obstructing large mass in the rectosigmoid colon. The mass was circumferential and measured 7 cm in length. In addition its diameter measured 6 mm. No bleeding was present. It was biopsied with cold forceps histology. The area was tattooed with an injection of 1 mL of Uyen ink. The entire examined colon appeared normal on direct and retroflexion views. Internal hemorrhoids were found during retroflexion. The hemorrhoids were grade 1. Impression was that of a malignant partially obstructing tumor in the rectosigmoid colon. The entire colon otherwise was normal on direct and retroflexion views. Internal hemorrhoids observed. Pathology demonstrated fragments of tubular adenoma. Patient then presented to the emergency room with acute prolapse of the entire mass and rectum externally. She underwent urgent laparoscopic assisted low anterior rectosigmoid resection with rigid sigmoidoscopy on 09/14/2021. The pathology demonstrated that within the rectosigmoid colon there was a tubulovillous adenoma with high-grade dysplasia and focal well differentiated adenocarcinoma extending into the superficial submucosa. Please see complete scanned pathology report for details. Briefly the tumor measured 10.5 cm in size. It was located in the rectosigmoid colon. Macroscopic tumor perforation was absent. Histologic type was colonic adenocarcinoma, grade 1. The tumor extended focally into the submucosa. Margins were free. There was no lymphovascular or perineural invasion. Tumor deposits were absent. 14 lymph nodes were retrieved. None were involved with disease. Had Ramsey out after 45 days. Urinating normally now--no incontinence; feels like she voids to completion. Bowel habits regular. Stools formed. Had root canal early September and had diarrhea the day after. No black or bloody stools. Good appetite. No new concerns today. Pt. here with family member. Appetite: Good Denies fevers or recent illness. Resp:denies cough or sob Cardiac:denies chest pain/palpitations GI:denies abd pain, n/v, moving bowels regularly :denies dysuria/hematuria Extrem:denies pain Neuro:denies symptoms of neuropathy Skin:denies rashes Heme:denies bleeding The ROS is otherwise negative. Past medical history, appointments, medications, allergies reviewed. No changes. EXAM: BP 158/76 Pulse 80 Temp 36.2 C (97.2 F) Wt 47.9 kg (105 lb 8 oz) SpO2 99% BMI 18.93 kg/m APPEARANCE Well appearing, alert, in no acute distress, well-hydrated, well nourished. HEART RRR with normal S1 and S2, no murmurs LUNG clear to auscultation LYMPH NODES No cervical lymphadenopathy, No supraclavicular lymphadenopathy, and No axillary lymphadenopathy. ABDOMEN bowel sounds normoactive, soft, non-tender, non-distended, without organomegaly or palpable masses, no tenderness to palpation EXTREMITIES No edema NEURO Awake, alert and oriented x 3, Normal gait, and No involuntary motions. ASSESSMENT/PLAN: 1. 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 S/p urgent laparoscopic assisted low anterior rectosigmoid resection with rigid sigmoidoscopy on 09/14/2021. Per Dr. Wallis's previous note 11/17/21: -No clear indication for genetic testing. -No indication for adjuvant chemotherapy. -No indication for routine medical oncologic surveillance. -Answered all of her and her cousin's questions to their satisfaction. Plan: -Will schedule for survivorship care plan -Advised repeat colonoscopy with Dr. Abraham or Dr. Quintana at 1 year. - No concerning findings on exam. - Reviewed SCP with pt. Copies given. - All questions answered. - Colonoscopy due August 2022. - Follow up as needed. - Pt. aware to call office with any questions/concerns. The patient indicates understanding of these issues and agrees with the plan. All documentation from previous visit of 11/17/21-Dr. Wallis was copied and pasted, documentation has been reviewed and edited as necessary for today's visit. Carmelita Blanc APRN.IVIS documented in this encounter [facility] 11-17-2021 Note HNO ID: [id number] Author: Duong Wallis, DO Service: ? Author Type: Physician Type: Progress Notes Filed: 11/17/2021 3:05 PM Note Text: Patient referred by Dr. Abraham for my opinion recommendations regarding adjuvant treatment recommendations for patient who recently underwent surgery for colon cancer.. The impression and plan will be communicated by way of the shared electronic record or faxed under separate cover letter. HPI: The patient is a 76-year-old female with a past medical history significant for hypertension, osteoporosis, internal prolapsed hemorrhoids, rectal prolapse and urinary retention. She evidently had been undergoing evaluation for prolapsing internal hemorrhoids and was noted to have extreme watery copious rectal discharge along with diarrhea. She was referred for colonoscopy that was performed in July and was found to have a large villous type mass in the area of the rectosigmoid colon. Superficial biopsies of the mass performed endoscopically revealed evidence of tubulovillous adenoma with no invasive cancer but due to the size of the mass it was felt there may be possibility of underlying invasive disease deeper within the mass. She had a CT of the chest, abdomen pelvis on 09/01/2021. Chest imaging revealed an 8.1 mm bulla in the right upper lobe. Remainder of the chest was unremarkable. In the abdomen there was a large amount of fecal material in the colon with a large soft tissue density in the rectum potentially representing either neoplastic mass versus fecal retention. Clinical correlation was recommended. Patient underwent colonoscopy on 08/20/2021. Report indicates the colonoscope was advanced all the way to the cecum identified by the appendiceal orifice and ileocecal valve as well as palpation. Findings included the perianal and digital rectal exams were normal. There was a frond-like villous partially obstructing large mass in the rectosigmoid colon. The mass was circumferential and measured 7 cm in length. In addition its diameter measured 6 mm. No bleeding was present. It was biopsied with cold forceps histology. The area was tattooed with an injection of 1 mL of Uyen ink. The entire examined colon appeared normal on direct and retroflexion views. Internal hemorrhoids were found during retroflexion. The hemorrhoids were grade 1. Impression was that of a malignant partially obstructing tumor in the rectosigmoid colon. The entire colon otherwise was normal on direct and retroflexion views. Internal hemorrhoids observed. Pathology demonstrated fragments of tubular adenoma. Patient then presented to the emergency room with acute prolapse of the entire mass and rectum externally. She underwent urgent laparoscopic assisted low anterior rectosigmoid resection with rigid sigmoidoscopy on 09/14/2021. The pathology demonstrated that within the rectosigmoid colon there was a tubulovillous adenoma with high-grade dysplasia and focal well differentiated adenocarcinoma extending into the superficial submucosa. Please see complete scanned pathology report for details. Briefly the tumor measured 10.5 cm in size. It was located in the rectosigmoid colon. Macroscopic tumor perforation was absent. Histologic type was colonic adenocarcinoma, grade 1. The tumor extended focally into the submucosa. Margins were free. There was no lymphovascular or perineural invasion. Tumor deposits were absent. 14 lymph nodes were retrieved. None were involved with disease. Had Ramsey out after 45 days. Urinating normally now--no incontinence; feels like she voids to completion. Bowel habits regular. Stools formed. Had root canal early September and had diarrhea the day after. No black or bloody stools. Good appetite. PMH, medications and allergies personally reviewed by me today. Any changes documented in appropriate section. ROS: Constitutional: Denies episodes of fever and night sweats. Not significantly fatigued. Normal appetite. Neuro: Denies JALLOH, vertigo, dizziness and imbalance. Denies symptoms of neuropathy. HEENT: No recent change in voice, vision or hearing. Resp: Denies cough, wheeze and hemoptysis. Denies shortness of breath at rest. Denies ROMANO. CVS: Denies exertional chest pain, PND, orthopnea and LE edema. GI: See above. : Denies dysuria or gross hematuria. No symptoms of bladder outlet obstruction. Endo: Denies hot flashes. Denies polyuria and polydipsia. Denies heat and cold intolerance. Musculoskeletal: Denies bone, back, joint and muscular pain. Derm: Denies rash. Denies jaundice and diffuse pruritis. Heme: Denies unusual bleeding and unexplained bruising. Psych: Normal mood. Family history: 1) Father-- of colon cancer age 72. PHYSICAL EXAM: Vitals: Blood pressure 138/81, pulse 95, temperature 36.8 ?C (98.3 ?F), height 159 cm (5' 2.6 ), weight 46.7 kg (103 lb), SpO2 96 %. Well-appearing and in no acute distress. EYES: Scle (more content not included)... [facility] 11-17-2021 History of Presen t illness Narrative Patient referred by Dr. Abraham for my opinion recommendations regarding adjuvant treatment recommendations for patient who recently underwent surgery for colon cancer.. The impression and plan will be communicated by way of the shared electronic record or faxed under separate cover letter. HPI: The patient is a 76-year-old female with a past medical history significant for hypertension, osteoporosis, internal prolapsed hemorrhoids, rectal prolapse and urinary retention. She evidently had been undergoing evaluation for prolapsing internal hemorrhoids and was noted to have extreme watery copious rectal discharge along with diarrhea. She was referred for colonoscopy that was performed in July and was found to have a large villous type mass in the area of the rectosigmoid colon. Superficial biopsies of the mass performed endoscopically revealed evidence of tubulovillous adenoma with no invasive cancer but due to the size of the mass it was felt there may be possibility of underlying invasive disease deeper within the mass. She had a CT of the chest, abdomen pelvis on 09/01/2021. Chest imaging revealed an 8.1 mm bulla in the right upper lobe. Remainder of the chest was unremarkable. In the abdomen there was a large amount of fecal material in the colon with a large soft tissue density in the rectum potentially representing either neoplastic mass versus fecal retention. Clinical correlation was recommended. Patient underwent colonoscopy on 08/20/2021. Report indicates the colonoscope was advanced all the way to the cecum identified by the appendiceal orifice and ileocecal valve as well as palpation. Findings included the perianal and digital rectal exams were normal. There was a frond-like villous partially obstructing large mass in the rectosigmoid colon. The mass was circumferential and measured 7 cm in length. In addition its diameter measured 6 mm. No bleeding was present. It was biopsied with cold forceps histology. The area was tattooed with an injection of 1 mL of Uyen ink. The entire examined colon appeared normal on direct and retroflexion views. Internal hemorrhoids were found during retroflexion. The hemorrhoids were grade 1. Impression was that of a malignant partially obstructing tumor in the rectosigmoid colon. The entire colon otherwise was normal on direct and retroflexion views. Internal hemorrhoids observed. Pathology demonstrated fragments of tubular adenoma. Patient then presented to the emergency room with acute prolapse of the entire mass and rectum externally. She underwent urgent laparoscopic assisted low anterior rectosigmoid resection with rigid sigmoidoscopy on 09/14/2021. The pathology demonstrated that within the rectosigmoid colon there was a tubulovillous adenoma with high-grade dysplasia and focal well differentiated adenocarcinoma extending into the superficial submucosa. Please see complete scanned pathology report for details. Briefly the tumor measured 10.5 cm in size. It was located in the rectosigmoid colon. Macroscopic tumor perforation was absent. Histologic type was colonic adenocarcinoma, grade 1. The tumor extended focally into the submucosa. Margins were free. There was no lymphovascular or perineural invasion. Tumor deposits were absent. 14 lymph nodes were retrieved. None were involved with disease. Had Ramsey out after 45 days. Urinating normally now--no incontinence; feels like she voids to completion. Bowel habits regular. Stools formed. Had root canal early September and had diarrhea the day after. No black or bloody stools. Good appetite. PMH, medications and allergies personally reviewed by me today. Any changes documented in appropriate section. ROS: Constitutional: Denies episodes of fever and night sweats. Not significantly fatigued. Normal appetite. Neuro: Denies JALLOH, vertigo, dizziness and imbalance. Denies symptoms of neuropathy. HEENT: No recent change in voice, vision or hearing. Resp: Denies cough, wheeze and hemoptysis. Denies shortness of breath at rest. Denies ROMANO. CVS: Denies exertional chest pain, PND, orthopnea and LE edema. GI: See above. : Denies dysuria or gross hematuria. No symptoms of bladder outlet obstruction. Endo: Denies hot flashes. Denies polyuria and polydipsia. Denies heat and cold intolerance. Musculoskeletal: Denies bone, back, joint and muscular pain. Derm: Denies rash. Denies jaundice and diffuse pruritis. Heme: Denies unusual bleeding and unexplained bruising. Psych: Normal mood. Family history: 1) Father-- of colon cancer age 72. PHYSICAL EXAM: Vitals: Blood pressure 138/81, pulse 95, temperature 36.8 C (98.3 F), height 159 cm (5' 2.6 ), weight 46.7 kg (103 lb), SpO2 96 %. Well-appearing and in no acute distress. EYES: Sclerae are anicteric bilaterally. LYMPHATIC: There is no palpable cervical, supraclavicular, axillary or inguinal adenopathy. RESPIRATORY: Inspiratory breath sounds are of normal intensity in all grayson. No rales, wheezes or rhonchi. CARDIOVASCULAR: Rhythm is regular. ABDOMEN: The abdomen is nondistended. No organomegaly. No tenderness. Extremities: No swelling or edema. SKIN: No jaundice or rash. NEUROLOGIC: thumb sewer II-XII are grossly intact. ASSESSMENT/PLAN: (C18.7) Cancer of sigmoid colon (HCC) (primary encounter diagnosis) Assessment: -pT1 pN0 MX stage I well-differentiated adenocarcinoma of the rectosigmoid colon. -Status post urgent laparoscopic assisted low anterior rectosigmoid resection with rigid sigmoidoscopy on 09/14/2021. -No clear indication for genetic testing. -No indication for adjuvant chemotherapy. -No indication for routine medical oncologic surveillance. -Answered all of her and her cousin's questions to their satisfaction. Plan: -Will schedule for survivorship care plan -Advised repeat colonoscopy with Dr. Abraham or Dr. Quintana at 1 year. I spent a total of 50 minutes on the date of the service which included preparing to see the patient, [id number] patient care, completing clinical documentation, obtaining and/or reviewing separately obtained history, performing a medically appropriate examination, counseling and educating the patient/family/caregiver, independently interpreting results (not separately reported), communicating results to the patient/family/caregiver and care coordination (not separately reported). Duong Wallis DO documented in this encounter [facility] 10-19-2021 Miscellaneous Notes Dx: colon cancer Ref provider: Dr. Isai Abraham File given to nurses for review. Nasreen Joe documented in this encounter [facility] 09-18-2021 Hospital Discharg e instructions Patient Education 09/18/2021 09:46:39 8- Post Op General Surgery (04/2020)(CUSTOM) What to Do After Your General Surgery This sheet will give you general information on what to do when you are home after surgery. However, you should always follow any specific instructions given to you by your surgeon. Pain Medication Please follow the directions on the label of your medication and use your discharge medication list provided by the hospital. Do not take pain medication on an empty stomach. This may cause a stomachache. Constipation is common while taking oral pain medication after surgery. Use a stool softener (Colace) or gentle laxative (milk of magnesia) if needed. As soon as your pain allows, use less of any narcotic pain medication. You may take [id number]-rhb-[id number] pain medication if you no longer need your prescribed pain medication. Rxtb-blt-odjmynx pain medications are Tylenol or Advil/Motrin (ibuprofen). Do not take Tylenol if you are still taking Atlas or Percocet. They are the same type of medication, and too much acetaminophen can hurt your liver. Activity It is OK to use stairs. Do not lift more than 15 pounds. After surgery, you may feel tired. Rest is important for healing. Slowly increase your activity level by walking and doing normal activities as you feel comfortable. Do not drive while taking narcotic pain medication. They should be out of your system for [address]. Diet Eating smaller meals instead of three large meals is good. This may help with your appetite and nutrition. Good nutrition will help you heal. Follow diet instructions that you were taught after surgery. Infection Prevention Washing your hands is one of the best ways to prevent infection. Always wash your hands before and after touching your incision or bandage. Hands carry germs that can cause infections. Try not to touch your incision. Keep the Incision Clean Wear clean, loose-fitting clothes to prevent clothes from rubbing on the incision. Put clean sheets on your bed when you get home. Do not let other people or animals touch the incision. Showering You may start to shower 48 hours after your surgery. Use a clean washcloth and towel on your incision before you use it on any other area of your body. Adjust the shower spray to gentle and use warm water. Gently wash over your incision using antibacterial soap and water and pat it dry. Do not rub the incision. Do not soak or submerge in the bathtub or hot tub until your surgeon says it is OK. Wound Care If you have a clear, see-through bandage over your incision(s), you may shower with it in place. The bandage is waterproof. oIt is normal to see a small amount of reddish fluid under the clear bandage. You may remove your bandage after 48 hours. If you are in the hospital longer than 48 hours, it is OK to remove your bandage when you get home. If you have thin white tape strips (Steri-Strips) over your incision, keep them dry. Do not remove them unless they begin curling up at the sides and are almost falling off. [place] or sutures are generally removed within seven to 14 days at your follow-up appointment. Drain Care If you have a drain, empty it two to three times per day or if it gets half full. Write down the time it was emptied and amount of fluid on a piece of paper. Bring your paper with times and fluid amounts to your follow-up appointment to show your surgeon. Call Your Doctor If: You have a fever of 101 degrees or higher. It is not uncommon to have a low-grade fever after surgery. You have new redness or fluid around the incision that smells bad or looks like pus. Your skin is very painful, red, warm and/or swollen around the incision. You have a lot of bleeding (push with pressure on the area if this happens). You have bad stomach pain or you start throwing up. If you are unable to reach your surgeon, go to the hospital. Follow Up If a follow-up appointment has not been made, please call your surgeon s office. Most appointments are 10 14 days after surgery. If you have any problems or concerns before then, call the surgeon s office. 09/17/2021 20:13:09 Indwelling Urinary Catheter Care, Adult Indwelling Urinary Catheter Care, Adult An indwelling urinary catheter is a thin, flexible, germ-free (sterile) tube that is placed into the bladder to help drain urine out of the body. The catheter is inserted into the part of the body that drains urine from the bladder (urethra). Urine drains from the catheter into a drainage bag outside of the body. Taking good care of your catheter will keep it working properly and help to prevent problems from developing. What are the risks? Bacteria may get into your bladder and cause a urinary tract infection. Urine flow can become blocked. This can happen if the catheter is not working correctly, or if you have sediment or a blood clot in your bladder or the catheter. Tissue near the catheter may become irritated and bleed. How to wear your catheter and your drainage bag Supplies needed Adhesive tape or a leg strap. Alcohol wipe or soap and water (if you use tape). A clean towel (if you use tape). Overnight drainage bag. Smaller drainage bag (leg bag). Wearing your catheter and bag Use adhesive tape or a leg strap to attach your catheter to your leg. Make sure the catheter is not pulled tight. If a leg strap gets wet, replace it with a dry one. If you use adhesive tape: 1.Use an alcohol wipe or soap and water to wash off any stickiness on your skin where you had tape before. 2.Use a clean towel to pat-dry the area. 3.Apply the new tape. You should have received a large overnight drainage bag and a smaller leg bag that fits underneath clothing. You may wear the overnight bag at any time, but you should not wear the leg bag at night. Always wear the leg bag below your knee. Make sure the overnight drainage bag is always lower than the level of your bladder, but do not let it touch the floor. Before you go to sleep, hang the bag inside a wastebasket that is covered by a clean plastic bag. How to care for your skin around the catheter Supplies needed A clean washcloth. Water and mild soap. A clean towel. Caring for your skin and catheter Every day, use a clean washcloth and soapy water to clean the skin around your catheter. 1.Wash your hands with soap and water. 2.Wet a washcloth in warm water and mild soap. 3.Clean the skin around your urethra. ?If you are female: ?Use one hand to gently spread the folds of skin around your vagina (labia). ?With the washcloth in your other hand, wipe the inner side of your labia on each side. Do this in a cpcdx-ul-ybuu direction. ?If you are male: ?Use one hand to pull back any skin that covers the end of your penis (foreskin). ?With the washcloth in your other hand, wipe your penis in small circles. Start wiping at the tip of your penis, then move outward from the catheter. ?Move the foreskin back in place, if this applies. 4.With your free hand, hold the catheter close to where it enters your body. Keep holding the catheter during cleaning so it does not get pulled out. 5.Use your other hand to clean the catheter with the washcloth. ?Only wipe downward on the catheter. ?Do not wipe upward toward your body, because that may push bacteria into your urethra and cause infection. 6.Use a clean towel to pat-dry the catheter and the skin around it. Make sure to wipe off all soap. 7.Wash your hands with soap and water. Shower every day. Do not take baths. Do not use cream, ointment, or lotion on the area where the catheter enters your body, unless your health care provider tells you to do that. Do not use powders, sprays, or lotions on your genital area. Check your skin around the catheter every day for signs of infection. Check for: ?Redness, swelling, or pain. ?Fluid or blood. ?Warmth. ?Pus or a bad smell. How to empty the drainage bag Supplies needed Rubbing alcohol. Gauze pad or cotton ball. Adhesive tape or a leg strap. Emptying the bag Empty your drainage bag (your overnight drainage bag or your leg bag) when it is ? full, or at least 2 3 times a day. Clean the drainage bag according to the infrastructure software engineer's instructions or as told by your health care provider. 1.Wash your hands with soap and water. 2.Detach the drainage bag from your leg. 3.Hold the drainage bag over the toilet or a clean container. Make sure the drainage bag is lower than your hips and bladder. This stops urine from going back into the tubing and into your bladder. 4.Open the pour spout at the bottom of the bag. 5.Empty the urine into the toilet or container. Do not let the pour spout touch any surface. This precaution is important to prevent bacteria from getting in the bag and causing infection. 6.Apply rubbing alcohol to a gauze pad or cotton ball. 7.Use the gauze pad or cotton ball to clean the pour spout. 8.Close the pour spout. 9.Attach the bag to your leg with adhesive tape or a leg strap. 10.Wash your hands with soap and water. How to change the drainage bag Supplies needed: Alcohol wipes. A clean drainage bag. Adhesive tape or a leg strap. Changing the bag Replace your drainage bag with a clean bag if it leaks, starts to smell bad, or looks dirty. 1.Wash your hands with soap and water. 2.Detach the dirty drainage bag from your leg. 3.Pinch the catheter with your fingers so that urine does not spill out. 4.Disconnect the catheter tube from the drainage tube at the connection valve. Do not let the tubes touch any surface. 5.Clean the end of the catheter tube with an alcohol wipe. Use a different alcohol wipe to clean the end of the drainage tube. 6.Connect the catheter tube to the drainage tube of the clean bag. 7.Attach the clean bag to your leg with adhesive tape or a leg strap. Avoid attaching the new bag too tightly. 8.Wash your hands with soap and water. General instructions Never pull on your catheter or try to remove it. Pulling can damage your internal tissues. Always wash your hands before and after you handle your catheter or drainage bag. Use a mild, fragrance-free soap. If soap and water are not available, use hand car rental agent. Always make sure there are no twists or bends (kinks) in the catheter tube. Always make sure there are no leaks in the catheter or drainage bag. Drink enough fluid to keep your urine pale yellow. Do not take baths, swim, or use a hot tub. If you are female, wipe from front to back after having a bowel movement. Contact a health care provider if: Your urine is cloudy. Your urine smells unusually bad. Your catheter gets clogged. Your catheter starts to leak. Your bladder feels full. Get help right away if: You have redness, swelling, or pain where the catheter enters your body. You have fluid, blood, pus, or a bad smell coming from the area where the catheter enters your body. The area where the catheter enters your body feels warm to the touch. You have a fever. You have pain in your abdomen, legs, lower back, or bladder. You see blood in the catheter. Your urine is pink or red. You have nausea, vomiting, or chills. Your urine is not draining into the bag. Your catheter gets pulled out. Summary An indwelling urinary catheter is a thin, flexible, germ-free (sterile) tube that is placed into the bladder to help drain urine out of the body. The catheter is inserted into the part of the body that drains urine from the bladder (urethra). Take good care of your catheter to keep it working properly and help prevent problems from developing. Always wash your hands before and after you handle your catheter or drainage bag. Never pull on your catheter or try to remove it. This information is not intended to replace advice given to you by your health care provider. Make sure you discuss any questions you have with your health care provider. Document Released: 04/18/2006 Document Revised: 08/10/2019 Document Reviewed: 12/02/2017 Elsevier Patient Education 2019 [employer]. Follow Up Care 09/11/2021 10:16:25 With:RABIA JETER MD, [facility], Urology Service Address: [address] [place] [address] [address] [facility] [place] [place] [address]- [phone] When: Unknown Comments:the office will call you for a follow up appointment and [place] removal with voiding trial With:SHANNON FUNG Address: [facility] [address] [place] [phone]- Business (1) When:1-2 days Comments:Please call the office to set up a follow up appointment. With:ISAI ABRAHAM MD, Surgery Address: [address] [facility] General Surgery [place], [place] [phone]- [phone] Business (1) When:10/01/2021 13:50:00 [facility] 05-14-2021 Hospital Discharg e instructions Patient Education 05/14/2021 08:25:36 Rectal Prolapse Rectal Prolapse Rectal prolapse means the rectum has fallen out of position. In many cases, rectal tissue sags out of the anus. This happens when the rectum becomes stretched out, pushes down, and sags out through the anus. A reddish mass of tissue may be seen or felt at the opening of the anus. The tissue may stick out beyond the anus. This may happen following a bowel movement, and then go away for a time. Or it may be present all the time. Stool or mucus may also leak out of the anus. Rectal prolapse happens when the structures and muscles in the pelvis and anus are weakened. It is not common. But it does occur often in elderly women. And it can happen in both men and women of all ages. and childbirth can make it more likely. So can repeated straining to have a bowel movement. Often people have a hemorrhoid, which they think is a prolapse. That's because they see or feel something abnormal, and many of the symptoms are the same. The following are symptoms of a rectal prolapse: Diarrhea or constipation Stool leaking out Mucus or blood in the stool Incomplete bowel movements Belly (abdominal) or rectal discomfort To return the rectum back into place, apply gentle pressure. But it will likely prolapse again. For long-term treatment, you may need surgery. In some people, other organs also prolapse, such as the bladder or uterus. You will likely be referred to a specialist who can examine you and tell you about your options. Home care Straining during bowel movements is often a cause of prolapse. To help ease and prevent constipation, take these steps: Laxatives, stool softeners, or bulking agents may be prescribed. Take these as directed. You may need them daily. Add more fruits' vegetables, and whole grains to your diet. Eat less high-fat foods and processed foods such as packaged snack foods. A fiber supplement can be added if you are not getting enough fiber in your diet. The goal is 20 to 30 grams of fiber daily. Don't ignore the urge to have a bowel movement. Once a day, set aside time after a meal for an undisturbed visit to the toilet. Don't strain or push hard to pass stool. Don't spend more than a few minutes on the toilet to have a bowel movement. If you smoke, quit. If you have a prolapse: To return a prolapsed rectum back into place, first wash your hands well. Wet a soft cloth with warm water. Then, lie on your side with your knees to your chest. Hold the cloth to the anus and use gentle pressure to push the rectum back into place. When you re done, call your healthcare provider. If you can't push the prolapse back or are uncomfortable doing so, call your healthcare provider or go to the emergency department. Follow-up care Follow up with your healthcare provider, or as advised. If you have been referred to a specialist, make the appointment right away. Call Call if any of the following occur: Heavy bleeding Severe abdominal pain or swelling Severe rectal pain Fainting or loss of consciousness Rapid heart rate When to seek medical advice Call your healthcare provider right away if any of these occur: Return of the prolapse Fever of 100.4 F (38 C) or higher, or as directed by your healthcare provider Blood in stool Abdominal pain or swelling Repeated vomiting You can't have a bowel movement or can't control bowel movements [id number] [employer]. [address] [place] [address]. All rights reserved. This information is not intended as a substitute for professional medical care. Always follow your healthcare professional's instructions. Follow Up Care 05/14/2021 07:58:07 With:ISAI ABRAHAM MD, Surgery, Surgery Address: [address] [facility] [place] [address]- [phone] When:2-4 days Comments:Call later today to schedule [facility] Evaluation + Plan note Future Appointments Appointment Date:05/21/2021 03:40:00 PM Scheduled Provider:ISAI ABRAHAM MD Location:[facility] Appointment Type:GS CAN LABELER [facility] Evaluation + Plan note Future Appointments Appointment Date:10/01/2021 01:50:00 PM Scheduled Provider:ISAI ABRAHAM MD Location:[facility] Appointment Type:GS OV Post Op [facility] Evaluation + Plan note Future Appointments Appointment Date:10/01/2021 01:50:00 PM Scheduled Provider:ISAI ABRAHAM MD Location:[facility] Appointment Type:GS OV Post Op Appointment Date:10/13/2021 09:40:00 AM Scheduled Provider:OSMAN MOSLEY Location:UROLOGY Appointment Type:URO OV Appointment Date:10/28/2021 11:00:00 AM Scheduled Provider:OSMAN MOSLEY Location:UROLOGY Appointment Type:URO OV [facility] Evaluation + Plan note Future Appointments Appointment Date:10/13/2021 09:40:00 AM Scheduled Provider:OSMAN MOSLEY Location:UROLOGY Appointment Type:URO OV Appointment Date:10/28/2021 11:00:00 AM Scheduled Provider:OSMAN MOSLEY Location:UROLOGY Appointment Type:URO OV Appointment Date:11/05/2021 01:20:00 PM Scheduled Provider:ISAI ABRAHAM MD Location:[facility] Appointment Type:GS OV Post Op [facility] Evaluation + Plan note Future Appointments Appointment Date:11/05/2021 01:20:00 PM Scheduled Provider:ISAI ABRAHAM MD Location:[facility] Appointment Type:GS OV Post Op Appointment Date:11/18/2021 08:40:00 AM Scheduled Provider:OSMAN MOSLEY MAP CLERK-MULTIPLE PRESSURE RIVETER OPERATOR Location:UROLOGY Appointment Type:URO OV [facility] Evaluation + Plan note Future Appointments Appointment Date:02/08/2022 01:10:00 PM Scheduled Provider:ISAI ABRAHAM MD Location:[facility] Appointment Type:GS OV Post Op Appointment Date:05/18/2022 08:40:00 AM Scheduled Provider:OSMAN MOSLEY MAP CLERK-MULTIPLE PRESSURE RIVETER OPERATOR Location:UROLOGY Appointment Type:URO OV [facility] Evaluation + Plan note Future Appointments Appointment Date:11/16/2023 08:40:00 AM Scheduled Provider:NANCY WAYNE MAP CLERK-MULTIPLE PRESSURE RIVETER OPERATOR Location:UROLOGY Appointment Type:URO [facility] encounter [facility] Cancer of sigmoid colon (HCC)- Primary Malignant neoplasm of sigmoid colon [facility] course Narrative No data available for this section [facility] Discharge instructions No data available for this section [facility] Progress note No data available for this section [facility] Summary Purpose Family History No Family History Records FoundNo Family History Records Found Advance Directives No Advanced Directives Records FoundNo Advanced Directives Records Found Additional Source Comments Care Team (unrecognized sect ion and content) Pricing Director Relationship Specialty Start Date End Date Shannon Fung DO [address] [place], [place] [id number] PCP - General Family Practice 11/17/21 Source Comments (unrecognize d section and content) In the event this informatio n is protected by the Federal Confidentiality of Alcohol and Drug Abuse Patient Records regulations: The Federal rules restrict any use of the information to criminally investigate or prosecute any alcohol or drug abuse patient.[facility] the event this information is protected by the Federal Confidentiality of Alcohol and Drug Abuse Patient Records regulations: The Federal rules restrict any use of the information to criminally investigate or prosecute any alcohol or drug abuse patient.[facility] the event this information is protected by the Federal Confidentiality of Alcohol and Drug Abuse Patient Records regulations: The Federal rules restrict any use of the information to criminally investigate or prosecute any alcohol or drug abuse patient.[facility] Reason for Visit (unrecogniz ed section and content) Reason Comments Established Patient Care Team (unrecognized sect ion and content) Care Team Personnel Name: SHANNON FUNG DO Member Role: Primary Care Physician Address: Address: [facility] [address] [place] [address] Care Team Related Persons Name: SABINA DEAN Jimmy Address: [address] [phone] Address: [address] [phone] Care Team Personnel Name: SHANNON FUNG DO Member Role: Primary Care Physician Address: Address: [facility] [address] [place] [address]- Care Team Related Persons Name: SABINA EDAN Address: Home [address] [place], [place] [id number] Address: Temporary [address] [place], [place] [phone] Name: DECLINED, INFORMATION SOURCE (unrecogn ized section and content) DATE CREATED AUTHOR AUTHOR'S QUINTONIZ ATION 12/03/2022 [facility] ([place] FOR RECORDS PERTAINING TO PATIENTS WHO ARE OR HAVE BEEN ENROLLED IN A CHEMICAL DEPENDENCY/SUBSTANCEABUSE PROGRAM, SOME INFORMATION MAY BE OMITTED. This clinical summary was aggregated from multiple sources. Caution should be exercised in using it in the provision of clinical care. This summary normalizes information from multiple sources, and as a consequence, information in this document may materially change the coding, format and clinical context of patient data. In addition, data may be omitted in some cases. CLINICAL DECISIONS SHOULD BE BASED ON THE PRIMARY CLINICAL RECORDS. [facility] [employer] [facility]. provides no warranty or guarantee of the accuracy or completeness of information in this document.
[2023-05-18 12:20] LABS: Absolute Lymphocyte Count 1.28 X10^3/uL (0.83-4.51); Basophil# 0.03 X10^3/uL; Basophil% 0.6 % (0-1); Eosinophil# 0.07 X10^3/uL; Eosinophils% 1.4 % (0-5); Hematocrit 37.6 % (37-47); Hemoglobin 12.2 g/dL (12.0-15.0); Lymphocyte # 1.28 X10^3/ul (0.83-4.51); Lymphocyte % 26.3 % (19-41); Mean Corp Hgb Conc 32.4 g/dL (32-36); Mean Corpuscular Hgb 31.9 pg (27.0-32.0); Mean Corpuscular Volume 98.2 fL (81-99); Mean Platelet Vol. 9.2 fl (6.2-12.0); Monocyte# 0.46 X10^3/uL; Monocyte% 9.5 % (0-10); NRBC Flagged by Analyzer 0 % (0-5); Neutrophil # 3.01 X10^3/uL (2.7-7.7); Platelet Count 337 K/mm3 (150-450); RBC Distribution Width CV 12.7 % (11.6-14.6); RBC Distribution Width SD 45.4 fl (35.1-43.9); Red Blood Count 3.83 M/mm3 (4.2-5.4); White Blood Count 4.9 K/mm3 (4.4-11.0)
[2023-05-18 13:08] LABS: ALB/GLOB Ratio 1.3 RATIO (0.9-2.4); AST(SGOT) 24 U/L (15-37); Alanine Aminotransfer ALT/SGPT 26 U/L (13-56); Albumin, Serum 4.1 g/dL (3.2-5.0); Alkaline Phosphatase 37 U/L (45-117); Anion Gap 6 (5-15); BUN 8 mg/dL (7-18); BUN/Creat Ratio 15.3 RATIO (10-20); Calcium,Total 9.2 mg/dL (8.5-10.1); Chloride 102 mmol/L (98-107); Creatinine, Serum 0.52 mg/dL (0.55-1.02); EST Glomerular Filtration Rate 121 mL/min (>60); Est Glom Filt Rate - Afr Amer 146 mL/min (>60); Globulin 3.1 g/dL (2.2-4.2); Glucose 107 mg/dL (74-106); Potassium 3.8 mmol/L (3.5-5.1); Protein, Total 7.2 g/dL (6.4-8.2); Sodium Level 135 mmol/L (136-145)
== END | disposition home or self-care (01) ==
LOC: BIMLAB 09:53
PROVIDERS: PCP Family Medicine; Visit Provider Family Medicine
DX: I10 Essential (primary) hypertension (principal)
CPT/HCPCS: 36415; 80053; 85025

== ENCOUNTER → 2023-10-14 | Outpatient (CLI) | payer MEDICARE, OTHER, SELFPAY ==
--- NOTE | 2023-10-14 12:34 | RAD_ITS ---
HISTORY: hip pain. TECHNIQUE: XR Hip Unilateral with Pelvis when performed; 2-3 Views. COMPARISON: CT 09/01/2021. FINDINGS: OSSEOUS STRUCTURES: No acute displaced fracture identified. Note that overlapping bowel shadows may obscure osseous detail. Mineralization unremarkable. JOINT SPACES: No dislocation. Mild degenerative changes of the hips. SOFT TISSUES: Suture in the region of the rectum. Multiple calcific densities in moderate stool throughout the colon down to the level of the rectum with a 3.6 cm oval calcification in the pelvis. RAD/HIP, UNI W/ Pelvis 2-3 Views IMPRESSION: No acute displaced fracture or dislocation identified. Mild degenerative change. Moderate stool throughout the colon with calcifications as above. Electronically Signed: Taty Phan MD at 11:53 EDT ,
--- NOTE | 2023-10-14 12:34 | RAD_ITS ---
STUDY: X-RAY - LUMBAR SPINE REASON FOR EXAM: Female, 77 years old. back pain TECHNIQUE: 3 view(s) of the lumbar spine were obtained. COMPARISON: None FINDINGS: Normal lumbar lordosis. Mild dextroconvex scoliosis. There is a normal alignment of the vertebrae. Normal vertebral bodies and endplates. Disc space narrowing at L4-5. Grade 1 spondylolisthesis L4-5. Bilateral rectangular radiodensities in larger ovoid opacity in the pelvis measuring up to 3.4 cm in diameter. The soft tissue structures are unremarkable. RAD/Lumbar Spine 2 or 3 Views IMPRESSION: Mild scoliosis. Grade 1 spondylolisthesis and degenerative disc disease L4-5. Multiple radiodensities require clinical correlation. Electronically Signed: Taiwo De Souza MD at 20:21 EDT ,
== END | disposition home or self-care (01) ==
LOC: MTRAD 12:34
PROVIDERS: PCP Family Medicine; Visit Provider Physician Assistant
DX: M79.604 Pain in right leg (principal); M54.50 Low back pain, unspecified
CPT/HCPCS: 72100; 73502

== ENCOUNTER 2023-10-26 09:57 | Outpatient (RCR) | payer MEDICARE, OTHER, SELFPAY | END 2023-10-26 19:00 | disposition home or self-care (01) | LOC: PT 09:57 | PROVIDERS: PCP Family Medicine; Referring Provider Nurse Practitioner; Visit Provider Nurse Practitioner | DX: M54.50 Low back pain, unspecified (principal) ==

== ENCOUNTER 2024-01-18 08:45 | Day surgery (SDC) | payer MEDICARE, OTHER, SELFPAY ==
--- NOTE | 2024-01-18 08:57 | PCM.PRE.AN2 ---
ASA Classification* ASA Classification ASA Classification: 2 Assessment & Plan Anesthesia* Anesthesia Assessment Anesthesia Assessment: Discussed sedation and/or anesthesia options, risks, benefits, and alternatives with patient/parents/legal guardian/POA. Questions invited. The patient/parents/legal guardian/POA seems to understand and agrees to proceed with anesthesia plan. Reviewed the physical assessment, medical history, allergy history and patient home medications list prior to surgery/procedure/anesthetic and documented any changes. Performed airway and anesthesia risk assessments. Anesthesia Type Anesthesia Type: MAC Anesthesia Focused Assessment* Airway Assessment Mouth opens: >3 cm Mallampati Score: II Focused Labs Anesthesia Preop lab: CBC WBC 4.9 K/mm3 (4.4-11.0) 05/18/23 09:53 RBC 3.83 M/mm3 (4.2-5.4) L 05/18/23 09:53 Hgb 12.2 g/dL (12.0-15.0) 05/18/23 09:53 Hct 37.6 % (37-47) 05/18/23 09:53 Plt Count 337 K/mm3 (150-450) 05/18/23 09:53 CHEMISTRY Potassium 3.8 mmol/L (3.5-5.1) 05/18/23 09:53 Sodium 135 mmol/L (136-145) L 05/18/23 09:53 BUN 8 mg/dL (7-18) 05/18/23 09:53 Creatinine 0.52 mg/dL (0.55-1.02) L 05/18/23 09:53 Glucose 107 mg/dL (74-106) H 05/18/23 09:53 COAG Pre-Assessment Diagnosis/Proposed Procedure Planned Operative Procedure(s): COLONOSCOPY Anesthesia History Anesthesia History - linux network administrator: Anesthesia History - linux network administrator Hx Hospitalization No 01/16/24 13:31 Any Problems With Anesthesia No 01/16/24 13:31 Cholinesterase deficiency No 01/16/24 13:31 You/Your Family Experience No 01/16/24 13:31 fever (hyperthermia) with Relationship Recent Exposure to Contagious No 01/11/23 11:04 Disease Does patient have nerve No 01/16/24 13:31 stimulator Patient instructed to have device shut off --Does patient have Pacemaker or ICD? When Was Last Pacemaker Check QUESTION #4 FULL TEXT: You/Your Family Experience fever (hyperthermia) with Anesthesia Last Oral Intake Last Oral intake: Last Oral Intake NPO since Meds taken in AM with sips of water? Meds patient instructed to take am of surgery PONV PONV - linux network administrator: PONV - linux network administrator Female No 01/16/24 13:31 HX of Motion Sickness No 01/16/24 13:31 HX of N/V After Surgery No 01/16/24 13:31 Non-Smoker Yes 01/16/24 13:31 Duration of Surgery greater No 01/16/24 13:31 than 60 minutes Number of Risk Factors 1 01/16/24 13:31 PONV Score Low Risk 01/16/24 13:31 Height & Weight Height & Weight: Anesthesia: Height & Weight Height 5 ft 2 in 12/09/23 11:34 Respiratory Assessment Respiratory Assessment - linux network administrator: Respiratory Tract Infection Hx - linux network administrator Hx Respiratory Tract Infection No 01/16/24 13:31 STOP Sleep Apnea STOP Sleep Apnea - linux network administrator: STOP Sleep Apnea - linux network administrator Hx Hypertension Yes: CONTROLLED WITH MEDS 01/16/24 13:31 Hx Sleep Apnea No 01/16/24 13:31 CPAP BIPAP Do you snore loudly (louder No 01/16/24 13:31 than talking or can be heard Do you often feel tired/ No 01/16/24 13:31 fatigued/ sleepy during daytime? Has anyone observed you stop No 01/16/24 13:31 breathing during sleep? STOP Results Negative 01/16/24 13:31 QUESTION #5 FULL TEXT : Do you snore loudly (louder than talking or can be heard through closed doors)? 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 Specify any problems Hx of Preganancy in last 3 No 01/16/24 13:31 Months Nurse Filling Out Transfusion [id number] 01/16/24 13:31 & Questions: Date: 01/16/24 01/16/24 13:31 Time: 13:34 01/16/24 13:31 Patient unable to answer at this time (ie. confused, unrespo /Reproduction History /Reproductive History - linux network administrator: /Reproductive Hx- linux network administrator Hx Now Gestational Age (in weeks): EDC: Hx Hx Para Hx Section SAB No 01/10/23 10:59 PFSH Medical History Cancer Encounter for screening colonoscopy Hoarseness Wears glasses Rectal prolapse Diarrhea Non-smoker Colonoscopy causing post-procedural bleeding Osteoporosis Hypertension Home Medications ?Medication ?Instructions ?Recorded ?Last Taken ?Type acetyll-sarnitine 1 cap PO DAILY 04/11/18 Unknown History cholecalciferol (vitamin D3) 50 2,000 unit PO DAILY 04/11/18 Unknown History mcg (2,000 unit) capsule cholestacare 1 cap PO TID 04/11/18 Unknown History digest assure 1 cap PO DAILY 04/11/18 Unknown History immune factor 1 cap PO BID 04/11/18 Unknown History liver antioxidant 1 cap PO DAILY 04/11/18 Unknown History marine sollagen peptide 1 cap PO DAILY 04/11/18 Unknown History multivitamin 1 cap PO DAILY 04/11/18 Unknown History omega-3 fatty acids 500 mg capsule 500 mg PO DAILY 04/11/18 01/14/24 History psyllium husk 0.52 gram capsule 0.52 g PO DAILY 04/11/18 01/14/24 History (Daily Fiber) ultimate friendly kristine 1 cap PO DAILY 04/11/18 Unknown History vitamin K2 40 mcg tablet 40 mcg PO DAILY 04/11/18 Unknown History ascorbic acid (vitamin C) 500 mg 500 mg PO DAILY 04/17/19 Unknown History capsule astaxanthin 4 mg capsule 4 mg PO BID 04/17/19 Unknown History resveratrol 50 mg capsule 50 mg PO DAILY 04/17/19 Unknown History denosumab 60 mg/mL subcutaneous 60 mg subcut [id number] #1 mL 06/17/22 Unknown Rx syringe (Prolia) calcium carb, gluc 500 mg 1 tab PO TID 09/13/22 Unknown History calcium-magnesium gluc, oxide 250 mg tablet (Calcium Magnesium) lisinopril 10 1 tab PO DAILY #90 tabs 05/18/23 Unknown Rx mg-hydrochlorothiazide 12.5 mg tablet Allergy/AdvReac Type Severity Reaction Status Date / Time No Known Allergies Allergy Verified 01/16/24 13:28 Family History Father Colon cancer Mother Hypertension Parkinsons Surgical History History of colon surgery History of colonoscopy (~07/2021) Social History Smoking Status: Never smoker alcohol intake: never substance use type: does not use what type of physical activity do you participate in: walking frequency: daily Review of Systems (Anesthesia) ROS Narrative System reviewed and no additional complaints, except as documented.
[2024-01-18 09:04] VITALS: BP 128/82; PULSE 94; RESP 18; TEMP 36.2; O2SAT 99; BMI 16.9
[2024-01-18] MEDS: Lactated Ringers 1,000 ML 15 ML IV (09:16)
--- NOTE | 2024-01-18 09:37 | HP.PCM_ITS ---
History and Physical Date of Admission: 01/18/24 76 F who presents to the office today for discussion of findings from recent colonoscopy that was indicated to f/u well-differentiated adenocarcinoma of the rectosigmoid colon. 08/2022 colonoscopy revealed patent end-to-side colo-colonic anastomosis, characterized by healthy appearing mucosa; 30 mm hyperplastic polyp at splenic flexure, 18 mm hyperplastic polyp in cecum. Dr Quintana recommends repeat colonoscopy in 4 mos. She initially established with us in June 2021 for diarrhea.? Her father had colon cancer.? She had a history of positive Cologuard in 2018 but has never had a colonoscopy due to fear of receiving a cancer diagnosis.? Dr. Quintana did colonoscopy in July 2021, finding a malignant-appearing partially obstructing tumor in the rectosigmoid colon; pathology report was tubulovillous adenoma.? She had acute rectal prolapse of the tumor mass which colorectal surgeon Dr Francesco Spears at [place] reduced under anesthesia in 08/2021. He then did laparoscopically assisted low anterior rectosigmoid resection; pathology was tubulovillous adenoma with high-grade dysplasia and focal well differentiated adenocarcinoma extending into the superficial submucosa. All 14 lymph nodes removed were negative. She met with oncologist Dr Wallis on 11/17/21 at [facility] Akanksha: pT1? pN0 MX stage I well-differentiated adenocarcinoma of the rectosigmoid colon. Per Dr. Wallis's note, no clear indication for genetic testing, no indication for adjuvant chemotherapy, no indication for routine medical oncologic surveillance.? Her weight is stable. No GI complaints. Denies abd or rectal pain. No nausea, vomiting, dysphagia, heartburn. No constipation, diarrhea, melena, hematochezia. 09/15/22 Colonoscopy Impression: ? - Patent end-to-side colo-colonic anastomosis, ? characterized by healthy appearing mucosa. ? Biopsied. ? - One 30 mm polyp at the splenic flexure. ? Biopsied. Injected. ? - One 18 mm polyp in the cecum, removed with a ? hot snare. Resected and retrieved. Clips were ? placed. ? - Redundant colon. ? - Diverticulosis in the sigmoid colon. MICROSCOPIC DIAGNOSIS A. Cecal polyp, biopsy: Fragments of hyperplastic polyp. B. Splenic flexure, biopsy: Fragments of hyperplastic polyp. C. Anastomotic site, biopsy: Melanosis coli and minimal glandular distortion ROS Const Constitutional: No fatigue ENT ENT: No difficulty swallowing Gastro GI: No abdominal pain, belching, bloating, change in bowel habits, change in stool character, coffee ground emesis, constipation, cramping, diarrhea, heartburn, difficulty swallowing, feeling full early, excessive flatus, incontinent of stools, Vomiting blood/hematemesis, Blood in stool, loose stools, Black,tarry stools, nausea/dyspepsia, pain with swallowing, vomiting or other Musc Musculoskeletal: No joint pain Skin Skin: No yellowing of the eye or itchy eyes Psych Psychiatric: No anxiety and No depression Endo Endocrine: No fatigue Aller/Imm Allergy/Immunologic: No itchy eyes Ed/Lymp Hematologic/Lymphatic: No easy bleeding or easy bruising Exam Const General: cooperative, healthy appearing and anxious Orientation: alert, awake and oriented x3 Quality Reporting Tobacco Screening ([facility] 138) Smoking Status: Never smoker Assessment and Plan Assessment and Plan (1) Colon polyps: Status: Acute Plan: 76 yr old female with hx of well-differentiated adenocarcinoma of the rectosigmo id colon. Her one-yr f/u colonoscopy revealed a 30 mm hyperplastic polyp at splenic flexure and and an 18 mm hyperplastic polyp in cecum.?Dr Quintana recommends repeat colonoscopy in 4 mos, she is scheduled for that. I assured her I will share her results with Dr Spears. (2) History of colorectal cancer: Status: Acute Plan: see above I have examined the patient and the H&P has been reviewed. There are no clinical changes since date of exam.
[2024-01-18 10:05] VITALS: BP 128/82; BP 95/69; PULSE 78; RESP 16; TEMP 36.6; O2SAT 100
--- NOTE | 2024-01-18 10:08 | OP.COLON_ITS ---
Patient Name: Evelyn Borges Procedure Date: 01/18/2024 9:39 AM Date of : 1945 Age: 78 Procedure: Colonoscopy Indications: High risk colon cancer surveillance: Personal history of colon cancer Providers: Yann Quintana DO Referring MD: Yann Quintana DO Medicines: Monitored Anesthesia Care Patient Profile: This is a 78 year old female. Refer to note in patient chart for documentation of history and physical. Last Colonoscopy: within the past 3 years. Complications: No immediate complications. Procedure: Pre-Anesthesia Assessment: - Prior to the procedure, a History and Physical was performed, and patient medications and allergies were reviewed. The patient is competent. The risks and benefits of the procedure and the sedation options and risks were discussed with the patient. All questions were answered and informed consent was obtained. Patient identification and proposed procedure were verified by the physician in the pre-procedure area. Mental Status Examination: alert and oriented. Airway Examination: normal oropharyngeal airway and neck mobility. Respiratory Examination: clear to auscultation. CV Examination: normal. Prophylactic Antibiotics: The patient does not require prophylactic antibiotics. Prior Anticoagulants: The patient has taken no anticoagulant or antiplatelet agents except for NSAID medication. ASA Grade Assessment: II - A patient with mild systemic disease. After reviewing the risks and benefits, the patient was deemed in satisfactory condition to undergo the procedure. The anesthesia plan was to use monitored anesthesia care (MAC). Immediately prior to administration of medications, the patient was re-assessed for adequacy to receive sedatives. The heart rate, respiratory rate, oxygen saturations, blood pressure, adequacy of pulmonary ventilation, and response to care were monitored throughout the procedure. The physical status of the patient was re-assessed after the procedure. After I obtained informed consent, the scope was passed under direct vision. Throughout the procedure, the patient's blood pressure, pulse, and oxygen saturations were monitored continuously. The Colonoscope was introduced through the anus and advanced to the cecum, identified by appendiceal orifice and ileocecal valve. The colonoscopy was performed without difficulty. The patient tolerated the procedure well. The quality of the bowel preparation was adequate. The ileocecal valve, appendiceal orifice, and rectum were photographed. Scope In: 9:45:19 AM Scope Withdrawal Time 0 hours 9 minutes 4 seconds Scope Out: 10:00:45 AM Total Procedure Duration Time 0 hours 15 minutes 26 seconds Findings: The perianal and digital rectal examinations were normal. There was evidence of a prior end-to-end colo-colonic anastomosis in the recto-sigmoid colon. This was patent and was characterized by healthy appearing mucosa. The exam was otherwise without abnormality on direct and retroflexion views. Impression: - Patent end-to-end colo-colonic anastomosis, characterized by healthy appearing mucosa. - The examination was otherwise normal on direct and retroflexion views. - No specimens collected. Recommendation: - Discharge patient to home. - Resume previous diet. - Continue present medications. - Repeat colonoscopy in 2 years for surveillance. Procedure Code(s): --- Professional --- G0105, Colorectal cancer screening; colonoscopy on individual at high risk CPT copyright 2021 [employer] [place] [employer] [employer]. All rights reserved. The codes documented in this report are preliminary and upon go go dancer review may be revised to meet current compliance requirements. Yann Quintana DO 01/18/2024 10:07:35 AM This report has been signed electronically. Number of Addenda: 0 Note Initiated On: 01/18/2024 9:39 AM
--- NOTE | 2024-01-18 10:08 | OP.CCLET_ITS ---
01/18/2024 Pito Fung Re : Colonoscopy procedure for Evelyn Borges Dear Dr. Fung This procedure was performed on Thursday, January 18, 2024. My impressions and recommendations are as follows: Impressions : - Patent end-to-end colo-colonic anastomosis, characterized by healthy appearing mucosa. - The examination was otherwise normal on direct and retroflexion views. - No specimens collected. Recommendations : - Discharge patient to home. - Resume previous diet. - Continue present medications. - Repeat colonoscopy in 2 years for surveillance. My findings are described in the full procedure note, which is enclosed. If I can be of further assistance, please feel free to contact me at . Sincerely, Yann Quintaan, 01/18/2024 10:07:35 AM This report has been signed electronically.
[2024-01-18 10:09] VITALS: BP 95/59; PULSE 75; RESP 16; TEMP 36.6; O2SAT 99
--- NOTE | 2024-01-18 10:09 | PCM.POST.ANE ---
Anesthesia: Postop Eval I Current Vital Signs Temperature: 97.8 F Pulse Rate: 75 Blood Pressure: 95/59 Respiratory Rate: 16 Pulse Ox: 99 Oxygen Delivery Method: Room Air Assessment Airway patent: Yes Spontaneous unlabored respirations: Yes Mental status: Asleep nausea: No Vomiting: No Anesthesia Complication: No Fluid Hydration Crystalloid volume administer (ml): 500 Total IV fluid infused: 500 Progress Note Anesthesia document: Postop Eval 1 completed: Yes
[2024-01-18 10:10] VITALS: BP 128/82; BP 96/70; PULSE 71; RESP 16; O2SAT 97
[2024-01-18 10:15] VITALS: BP 104/72; BP 128/82; PULSE 80; RESP 16; TEMP 36.6; O2SAT 98
[2024-01-18 10:31] VITALS: BP 128/82
--- NOTE | 2024-01-18 13:30 | PCM.POSTANE2 ---
Anesthesia Postop Eval I Sum Postop Eval Completion status Anesthesia document: Postop Eval 1 completed: Yes Anesthesia Postop Eval I Summary Anesthesia Postop Eval I Summary: Anesthesia Postop Eval I: Assessment Summary Airway patent Yes 01/18/24 10:09 [email or web address] Spontaneous unlabored Yes 01/18/24 10:09 [email or web address] respirations Mental status Asleep 01/18/24 10:09 [email or web address] nausea No 01/18/24 10:09 [email or web address] Vomiting No 01/18/24 10:09 [email or web address] Anesthesia Postop Eval I: Fluid Summary Crystalloid volume administer 500 01/18/24 10:09 [email or web address] (ml) Colloids volume administered ( ml) Blood Product volume administered (ml) Total IV fluid infused 500 01/18/24 10:09 [email or web address] Anesthesia Postop Eval I: Summary Notes Anesthesia Complication No 01/18/24 10:09 [email or web address] Anesthesia Complication Comment: Post-operative progress note Anesthesia: Postop Eval II Evaluation Mental status: Awake Pain Level: 0 nausea: No Vomiting: No
== END 2024-01-18 11:03 | disposition home or self-care (01) ==
LOC: EN 08:46 → AC 08:47
PROVIDERS: PCP Family Medicine; Referring Provider Family Medicine; Visit Provider Internal Medicine Gastroenterology
PROC: 0DJD8ZZ Inspection of Lower Intestinal Tract, Via Natural or Artificial Opening Endoscopic (ICD-10-PCS; CPT 45378; principal; 2024-01-18 09:40)
DX: Z12.11 Encounter for screening for malignant neoplasm of colon (principal); K63.5 Polyp of colon; Z80.0 Family history of malignant neoplasm of digestive organs; Z85.038 Personal history of other malignant neoplasm of large intestine
CPT/HCPCS: G0121; J7120; J2405

== ENCOUNTER → 2024-01-23 | Outpatient (CLI) | payer MEDICARE, OTHER, SELFPAY ==
--- NOTE | 2024-01-23 | POL_PTH ---
PATIENT: MADELINE HODGSON LOC: [facility] U#:[id number] AGE/SX: 78/F ROOM: RE01/23/[address]: Dr. Flaca Guadalupe MD : 1945 BED: DIS: 01/23/2024 SPEC #: [id number] RECD: 01/24/24 09:35 STATUS: MICHAEL REChrista #: [id number] ROVERTO: 01/23/24 00:[address]: Flaca Guadalupe DEPT: SURGICAL PATHOLOGY RECD BY: Bronson Allan ENTERED: 01/24/24 09:36 SP TYPE: Polyp OTHR DR: Dr. Pito Fung, DO Tissues: Uterine cervix, NOS Procedures: Surgery Specimen Level IV HEADER OPERATION: Polypectomy PRE-OP DIAGNOSIS: Cervical polyp TISSUE SUBMITTED: Cervical polyp MICROSCOPIC DIAGNOSIS Cervical polyp, polypectomy: Benign ectocervical polyp. SJ. 01/25/2024 MICROSCOPIC DESCRIPTION Slides are reviewed. GROSS DESCRIPTION Received is one container labeled with the patient's name and not further designated. The specimen consists of a fragment of flores soft tissue measuring 0.5 x 0.1 x 0.1cm. The entire specimen is submitted in one cassette. 01/24/2024 TC:5 CPT:[id number]
[2024-01-27 16:10] LABS: HPV APTIMA, High Risk Negative (Negative)
== END | disposition home or self-care (01) ==
PROVIDERS: PCP Family Medicine; Referring Provider Obstetrics & Gynecology; Visit Provider Obstetrics & Gynecology
DX: N84.1 Polyp of cervix uteri (principal); Z12.4 Encounter for screening for malignant neoplasm of cervix
CPT/HCPCS: 87624; 88175; 88305; G0145

== ENCOUNTER → 2024-02-09 | Outpatient (CLI) | payer MEDICARE, OTHER, SELFPAY ==
--- NOTE | 2024-02-09 15:15 | CT_ITS ---
EXAM: CT ABDOMEN AND PELVIS WITH INTRAVENOUS CONTRAST CLINICAL INDICATION: history of colorectal cancer TECHNIQUE: Helically acquired images were obtained of the abdomen and pelvis with intravenous contrast. This CT exam was performed using one or more of the following dose reduction techniques: automated exposure control, adjustment of the mA and/or kV according to patient size, and/or use of iterative reconstruction technique. CONTRAST: Oral and amp; IV Readi-CAT and amp; 75mL Isovue-370 COMPARISON: CT Abdomen Pelvis dated 09/01/2021 FINDINGS: LOWER THORAX: Normal. Lung bases are clear. No cardiomegaly. No pericardial effusion. ABDOMEN: LIVER: Normal. Homogeneous. No focal mass. GALLBLADDER AND BILE DUCTS: Normal. No calcified gallstones. No gallbladder distention or wall edema. No intra- or extrahepatic biliary ductal dilation. PANCREAS: Normal. No focal cystic or solid mass. SPLEEN: Normal. Normal size without focal cystic or solid mass. ADRENALS: Normal. No nodules. KIDNEYS AND URETERS: Normal. Normal renal size and position. No hydronephrosis. STOMACH AND BOWEL: Moderate stool burden within the large bowel. Interval resection of the rectal mass with surgical anastomosis noted at the level of the distal rectum. PELVIS: APPENDIX: Appendix is visualized and normal in appearance. BLADDER: 3 cm stone noted within the urinary bladder. REPRODUCTIVE: Unremarkable as visualized. No mass. ABDOMEN and PELVIS: INTRAPERITONEAL SPACE: Normal. No ascites or other fluid collection. No free air. BONES/JOINTS: Prominent disc degeneration at the L4-5 and L5-S1 level again noted. There is increasing anterior epidural space lesion containing what is either calcium or contrast as well as gas causing significant compression of the thecal sac. Follow-up MRI of the lumbar spine may be indicated. Pectus excavatum deformity again noted. SOFT TISSUES: Normal. No discrete abdominal or pelvic wall hernia. VASCULATURE: Normal. Abdominal aorta is non-dilated. LYMPH NODES: Normal. No enlarged lymph nodes. CT/Abdomen/Pelvis WITH Contrast IMPRESSION: 1. Interval resection of the large rectal mass. 2. Constipation. 3. 3 cm urinary bladder stone. 4. Increasing collection of gas and soft tissue density of the anterior epidural space at the L4 level causing significant compression of the thecal sac. Follow-up MRI of the lumbar spine recommended. Electronically Signed: Shaq Andersen MD at 15:38 EDT ,
[2024-02-09 15:27] LABS: CREATININE FINGERSTICK < 1.0 mg/dL (0.55-1.02); EGFR FINGERSTICK > 60.0000 mL/min (>60)
== END | disposition home or self-care (01) ==
LOC: CT 14:43
PROVIDERS: PCP Family Medicine; Referring Provider Obstetrics & Gynecology; Visit Provider Obstetrics & Gynecology
DX: K63.5 Polyp of colon (principal); Z85.048 Personal history of other malignant neoplasm of rectum, rectosigmoid junction, and anus
CPT/HCPCS: 74177; Q9967

== ENCOUNTER → 2024-03-13 | Outpatient (CLI) | payer MEDICARE, OTHER, SELFPAY ==
--- NOTE | 2024-03-13 15:57 | MRI_ITS ---
STUDY: MRI LUMBAR SPINE WITH AND WITHOUT CONTRAST REASON FOR EXAM: Female, 78 years old. Lesion lumbar, hx colon ca TECHNIQUE: Standardized fat and water weighted pulse sequences were obtained in the sagittal and axial planes. IV 9 ml Clariscan was administered for the contrast portion of the examination. COMPARISON: CT abdomen and pelvis with contrast 02/09/2024. FINDINGS: T9-T10 and T10-T11: (Sagittal only). Normal endplates. Normal disc height, hydration and morphology. No ventral extradural defect. Normal central canal and bilateral intervertebral neural foramina. T11-T12: (Sagittal only). Normal endplates. Normal disc height. Mild ventral axial defect, slightly eccentric to the right is posterior bulging annulus. Normal central canal and bilateral intervertebral neuroforamina. T12-L1: (Sagittal only). Normal endplates. Normal disc height, hydration and morphology. No ventral extradural defect. Normal central canal and bilateral intervertebral neural foramina. Normal lumbar lordosis. There is no substantial scoliosis. Normal conus medullaris that terminates at the T12-L1 disc space level. L1-2: Shallow central Schmorl''s node in the L2 superior endplate without reactive marrow change. Normal endplates. Minimal disc space height narrowing. Minimal ventral extradural defect due to posterior bulging annulus. Normal facet joints. Normal central canal and bilateral lateral recesses. Normal bilateral intervertebral neuroforamina. L2-3: Normal endplates. Minimal disc space height narrowing. Mild ventral extradural defect due to posterior bulging annulus. No significant facet arthropathy. Normal central canal and bilateral lateral recesses. Mild stenosis of the bilateral intervertebral neuroforamina due to posterior bulging annulus into both L3 supra pedicular level foraminal zones, right greater than left. No impingement of either L2 nerve. L3-4: Normal endplates. Normal disc height, hydration and morphology. Mild bilateral degenerative facet arthropathy. Asymmetric posterior ligamenta flava hypertrophy, right greater than left. Normal central canal and left lateral recess. Severe stenosis of the right lateral recess due to extruded disc fragment coming from the L4-L5 disc space level. Mild stenosis of the left intervertebral neuroforamen due to left-sided posterior bulging annulus. Normal right intervertebral neuroforamen. L4-5: Modic type III degenerative vertebral marrow sclerosis underneath the vertebral endplates, greater towards the right side. Pronounced disc space height narrowing. Nearly grade 2 degenerative anterolisthesis of L4 on L5. Moderately pronounced right degenerative facet arthropathy. Moderate left degenerative facet arthropathy. Large right posterior cephalad extruded disc fragment measuring 2.2 x 1.3 x 1.8 cm. This is dark on T2 and sagittal STIR. This is due to calcified posterior cephalad disc extrusion. Following IV contrast administration, the extruded disc fragment did not enhance with intravenous contrast there is contrast enhancement of the overlying right epidural venous congestion. This is causing severe stenosis of the right lateral recess below the L3-L4 disc space level and only mild to moderate central canal stenosis with an AP, right millimeters. Normal bilateral lateral recesses at the L4-L5 disc space level. Pronounced stenosis of the right intervertebral neuroforamen with impingement of the right L4 nerve. Normal left intervertebral neuroforamen. L5-S1: Irregular vertebral endplates with Modic type III changes are more obvious on CT. Pronounced disc space height narrowing with degenerative vacuum phenomena. No significant facet arthropathy. Normal central canal and bilateral lateral recesses. [id number] stenosis of the right intervertebral neuroforamen and moderate stenosis of the left intervertebral neuroforamen. Normal visualized sacral ala. Normal visualized paraspinous soft tissue structures. Following IV contrast administration, there is no contrast enhancement of the large right L4-L5 posterior cephalad calcified extruded disc fragment but there is contrast enhancement of the overlying right epidural venous congestion. No other abnormal enhancing lesions intradurally and extradurally. MRI/Spine Lumbar W/WO Contrast IMPRESSION: 1. 2.2 x 1.3 x 1.8 cm large right L4-5 posterior cephalad calcified extruded disc fragment causing severe stenosis of the right lateral recess below the L3-L4 disc space level. Additionally, pronounced stenosis of the right L4-L5 intervertebral neuroforamen due to nearly grade 2 degenerative anterolisthesis of L4 on L5 and pronounced disc space height narrowing with impingement of the right L4 nerve. Moderate type III changes of the vertebral marrow underneath the vertebral endplates are more obvious on CT along with degenerative vacuum phenomenon and the calcified extruded disc fragment. 2. Pronounced L5-S1 disc space height narrowing with Modic type III changes. The endplate sclerosis and degenerative vacuum phenomenon are more obvious on CT abdomen and pelvis of 02/09/2024. 3. No other lumbar extruded disc fragment. Electronically Signed: Reginaldo Odom MD at 12:48 EST ,
[2024-03-13 16:57] LABS: CREATININE FINGERSTICK < 1.0 mg/dL (0.55-1.02); EGFR FINGERSTICK > 60.0000 mL/min (>60)
== END | disposition home or self-care (01) ==
LOC: MRI 15:53
PROVIDERS: PCP Family Medicine; Referring Provider Obstetrics & Gynecology; Visit Provider Obstetrics & Gynecology
DX: M89.9 Disorder of bone, unspecified (principal); R10.2 Pelvic and perineal pain
CPT/HCPCS: 72158; A9575

== ENCOUNTER 2024-03-15 06:55 | Day surgery (SDC) | payer MEDICARE, OTHER, SELFPAY ==
[2024-03-13 16:29] LABS: Hematocrit 36.1 % (37-47); Hemoglobin 12.1 g/dL (12.0-15.0); Mean Corp Hgb Conc 33.5 g/dL (32-36); Mean Corpuscular Hgb 32.4 pg (27.0-32.0); Mean Corpuscular Volume 96.5 fL (81-99); Mean Platelet Vol. 8.7 fl (6.2-12.0); Platelet Count 314 K/mm3 (150-450); RBC Distribution Width CV 12.4 % (11.6-14.6); RBC Distribution Width SD 43.7 fl (35.1-43.9); Red Blood Count 3.74 M/mm3 (4.2-5.4); White Blood Count 5.5 K/mm3 (4.4-11.0)
[2024-03-13 16:51] LABS: Anion Gap 7 (5-15); BUN 13 mg/dL (7-18); BUN/Creat Ratio 24.9 RATIO (10-20); Calcium,Total 9.3 mg/dL (8.5-10.1); Chloride 102 mmol/L (98-107); Creatinine, Serum 0.52 mg/dL (0.55-1.02); EST Glomerular Filtration Rate 121 mL/min (>60); Est Glom Filt Rate - Afr Amer 146 mL/min (>60); Glucose 105 mg/dL (74-106); Potassium 3.9 mmol/L (3.5-5.1); Sodium Level 136 mmol/L (136-145)
[2024-03-15] VITALS (10 sets, daily range): BP systolic 107–153; BP diastolic 65–92; PULSE 78–92; RESP 16–18; TEMP 35.7–37.3; O2SAT 95–100; BMI 18.9
[2024-03-15] MEDS: Lactated Ringers 1,000 ML 15 ML IV (07:26)
--- NOTE | 2024-03-15 08:01 | PRE.ANES_ITS ---
ASA Classification* ASA Classification ASA Classification: 2 Assessment & Plan Anesthesia* Anesthesia Assessment Anesthesia Assessment: Discussed sedation and/or anesthesia options, risks, benefits, and alternatives with patient/parents/legal guardian/POA. Questions invited. The patient/parents/legal guardian/POA seems to understand and agrees to proceed with anesthesia plan. Reviewed the physical assessment, medical history, allergy history and patient home medications list prior to surgery/procedure/anesthetic and documented any changes. Performed airway and anesthesia risk assessments. Anesthesia Type Anesthesia Type: General Anesthesia Focused Assessment* Temperature: 98 F Pulse Rate: 84 Blood Pressure: 153/92 Respiratory Rate: 16 Pulse Ox: 100 Airway Assessment Mouth opens: >3 cm Mallampati Score: II Focused Labs Anesthesia Preop lab: CBC WBC 5.5 K/mm3 (4.4-11.0) 03/13/24 15:58 RBC 3.74 M/mm3 (4.2-5.4) L 03/13/24 15:58 Hgb 12.1 g/dL (12.0-15.0) 03/13/24 15:58 Hct 36.1 % (37-47) L 03/13/24 15:58 Plt Count 314 K/mm3 (150-450) 03/13/24 15:58 CHEMISTRY Potassium 3.9 mmol/L (3.5-5.1) 03/13/24 15:58 Sodium 136 mmol/L (136-145) 03/13/24 15:58 BUN 13 mg/dL (7-18) 03/13/24 15:58 Creatinine 0.52 mg/dL (0.55-1.02) L 03/13/24 15:58 Glucose 105 mg/dL (74-106) 03/13/24 15:58 COAG Pre-Assessment Diagnosis/Proposed Procedure Planned Operative Procedure(s): CYSTO LASER LITHOTRIPSY STONE BLADDER Anesthesia History Anesthesia History - day care supervisor: Anesthesia History - day care supervisor Hx Hospitalization No 03/09/24 14:20 Any Problems With Anesthesia No 03/09/24 14:20 Cholinesterase deficiency No 03/09/24 14:20 You/Your Family Experience No 03/09/24 14:20 fever (hyperthermia) with Relationship Recent Exposure to Contagious No 03/15/24 07:14 Disease Does patient have nerve No 03/09/24 14:20 stimulator Patient instructed to have device shut off --Does patient have Pacemaker No 03/15/24 07:14 or ICD? When Was Last Pacemaker Check QUESTION #4 FULL TEXT: You/Your Family Experience fever (hyperthermia) with Anesthesia Last Oral Intake Last Oral intake: Last Oral Intake NPO since 23:00 03/15/24 07:14 Meds taken in AM with sips of No 03/15/24 07:14 water? Meds patient instructed to take am of surgery PONV PONV - day care supervisor: PONV - day care supervisor Female Yes 03/09/24 14:20 HX of Motion Sickness No 03/09/24 14:20 HX of N/V After Surgery No 03/09/24 14:20 Non-Smoker Yes 03/09/24 14:20 Duration of Surgery greater Yes 03/09/24 14:20 than 60 minutes Number of Risk Factors 3 03/09/24 14:20 PONV Score Moderate Risk 03/09/24 14:20 Height & Weight Height & Weight: Anesthesia: Height & Weight Height 5 ft 2 in 03/15/24 07:14 Weight: 47 kg 03/15/24 07:14 Body Mass Index (BMI) 18.9 03/15/24 07:14 Respiratory Assessment Respiratory Assessment - day care supervisor: Respiratory Tract Infection Hx - day care supervisor Hx Respiratory Tract Infection No 03/09/24 14:20 STOP Sleep Apnea STOP Sleep Apnea - day care supervisor: STOP Sleep Apnea - day care supervisor Hx Hypertension Yes: CONTROLLED WITH MEDS 03/09/24 14:20 Hx Sleep Apnea No 03/09/24 14:20 CPAP BIPAP Do you snore loudly (louder No 03/09/24 14:20 than talking or can be heard Do you often feel tired/ No 03/09/24 14:20 fatigued/ sleepy during daytime? Has anyone observed you stop No 03/09/24 14:20 breathing during sleep? STOP Results Negative 03/09/24 14:20 QUESTION #5 FULL TEXT : Do you snore loudly (louder than talking or can be heard through closed doors)? Tobacco Use History Tobacco Use History - day care supervisor: Tobacco Use History - day care supervisor Tobacco Use Smoking Status Never smoker 03/09/24 14:20 Hx Tobacco Use No 03/09/24 14:20 Years Smoking Packs Smoked per Day Smoking Cessation Date was within the last 15 years Hx Smoking Cessation Date Hx Smoking Cessation Counseling Hematologic Medial History Hematologic Hx - day care supervisor: Hematologic Medical Hx - general studies program chair Hx of Blood Transfusion No 03/09/24 14:20 Hx of Transfusion in last 3 No 03/09/24 14:20 Months Date of Last Transfusion (if within last 3 months) Ever experience any problems No 03/09/24 14:20 with transfusion(s)? Specify any problems Hx of Preganancy in last 3 No 03/09/24 14:20 Months Nurse Filling Out Transfusion DSCHRIBER 03/09/24 14:20 & Questions: Date: 03/09/24 03/09/24 14:20 Time: 14:21 03/09/24 14:20 Patient unable to answer at this time (ie. confused, unrespo /Reproduction History /Reproductive History - day care supervisor: /Reproductive Hx- day care supervisor Hx Now No 03/09/24 14:20 Gestational Age (in weeks): EDC: Hx Hx Para Hx Section SAB No 03/09/24 14:20 Active Medications Active Medications: Current Medications Generic Name Dose Route Start Last Admin Trade Name Freq PRN Reason Stop Dose Admin Cefazolin Sodium 2 gm/ N/A 20 mls @ 400 mls/hr 03/15/24 08:35 IV 03/15/24 08:37 PREOP ONE Lactated Ringer's 1,000 mls @ 15 mls/hr 03/15/24 07:15 03/15/24 07:26 IV 03/20/24 20:34 15 mls/hr .Q48H ORION Administration Protocol PFSH Medical History Bladder disease Cancer Encounter for screening colonoscopy History of colorectal cancer Hoarseness Wears glasses Rectal prolapse Diarrhea Non-smoker Colonoscopy causing post-procedural bleeding Osteoporosis Hypertension Home Medications ?Medication ?Instructions ?Recorded ?Last Taken ?Type acetyll-sarnitine 1 cap PO DAILY 04/11/18 03/13/24 History cholecalciferol (vitamin D3) 50 2,000 unit PO DAILY 04/11/18 03/13/24 History mcg (2,000 unit) capsule cholestacare 1 cap PO TID 04/11/18 03/13/24 History digest assure 1 cap PO DAILY 04/11/18 03/13/24 History immune factor 1 cap PO BID 04/11/18 03/13/24 History liver antioxidant 1 cap PO DAILY 04/11/18 03/13/24 History marine sollagen peptide 1 cap PO DAILY 04/11/18 03/13/24 History multivitamin 1 cap PO DAILY 04/11/18 03/13/24 History omega-3 fatty acids 500 mg capsule 500 mg PO DAILY 04/11/18 03/13/24 History psyllium husk 0.52 gram capsule 0.52 g PO DAILY 04/11/18 03/13/24 History (Daily Fiber) ultimate friendly kristine 1 cap PO DAILY 04/11/18 03/13/24 History vitamin K2 40 mcg tablet 40 mcg PO DAILY 04/11/18 03/13/24 History ascorbic acid (vitamin C) 500 mg 500 mg PO DAILY 04/17/19 03/13/24 History capsule astaxanthin 4 mg capsule 4 mg PO BID 04/17/19 03/13/24 History resveratrol 50 mg capsule 50 mg PO DAILY 04/17/19 03/13/24 History denosumab 60 mg/mL subcutaneous 60 mg subcut [id number] #1 mL 06/17/22 01/12/24 Rx syringe (Prolia) calcium 500 mg 1 tab PO TID 09/13/22 03/13/24 History (carb,gluconate)-magnesium 250 mg (gluc,oxide) tablet (Calcium Magnesium) lisinopril 10 1 tab PO DAILY #90 tabs 05/18/23 03/14/24 Rx mg-hydrochlorothiazide 12.5 mg tablet Allergy/AdvReac Type Severity Reaction Status Date / Time No Known Allergies Allergy Verified 03/15/24 07:11 Family History Father Colon cancer Mother Hypertension Parkinsons Surgical History History of colon surgery History of colonoscopy (~07/2021) Social History household members: none housing: other details: duplex number of children: 0 current occupational status: retired Smoking Status: Never smoker alcohol intake: never substance use type: does not use what type of physical activity do you participate in: walking frequency: daily seatbelt use: always do you feel safe at home: Yes Review of Systems (Anesthesia) ROS Narrative System reviewed and no additional complaints, except as documented.
--- NOTE | 2024-03-15 08:33 | EX.PCM.DISCH ---
Discharge Instructions Diet Discharge Diet: No restrictions Activity Discharge Activity: Return to Normal Activity Lifting Restrictions: No lifting over 20 pounds for a week Dressing / Incision Call your doctor if you observe: Fever of 101 or Higher, Inability to urinate and Inability to have a bowel movement Follow Up Care Please Follow Up With: Ivis Stafford MD When: In 2 to 3 weeks, call the office for appointment Test Results: Test results from this visit will be discussed in further detail at your follow-up appointment, if applicable. Discharge Plan Admission Attending Provider: Ivis Stafford Primary Care Provider: Pito Fung Instructions Print Language: Mozambican Discharge Orders/Prescriptions Prescriptions: New oxycodone-acetaminophen [Percocet] 5-325 mg tablet 1 tab PO Q8H PRN (Reason: pain) 3 Days Qty: 10 0RF cephalexin 500 mg capsule 500 mg PO Q12 3 Days Qty: 6 0RF phenazopyridine [Pyridium] 200 mg tablet 200 mg PO TID PRN PRN (Reason: Bladder Spasms) 7 Days Qty: 30 1RF Continued multivitamin capsule 1 cap PO DAILY acetyll-sarnitine 1 cap PO DAILY psyllium husk [Daily Fiber] 0.52 gram capsule 0.52 g PO DAILY cholestacare 1 cap PO TID marine sollagen peptide 1 cap PO DAILY ultimate friendly kristine 1 cap PO DAILY immune factor 1 cap PO BID cholecalciferol (vitamin D3) 2,000 unit capsule 2,000 unit PO DAILY digest assure 1 cap PO DAILY omega-3 fatty acids 500 mg capsule 500 mg PO DAILY liver antioxidant 1 cap PO DAILY vitamin K2 40 mcg tablet 40 mcg PO DAILY astaxanthin 4 mg capsule 4 mg PO BID ascorbic acid (vitamin C) 500 mg capsule 500 mg PO DAILY resveratrol 50 mg capsule 50 mg PO DAILY lisinopril-hydrochlorothiazide 10-12.5 mg tablet 1 tab PO DAILY Qty: 90 4RF Calcium Magnesium 500 mg calcium -250 mg Tablet 1 tab PO TID Prolia 60 mg/mL syringe 60 mg subcut [id number] Qty: 1 0RF Referrals / Follow Up: Pito Fung DO [Primary Care Provider] - Disposition Disposition (needs filled in before D/C Order can be placed): Home, Self Care
--- NOTE | 2024-03-15 08:35 | CALC_PTH ---
PATIENT: MADELINE HODGSON LOC: [facility] [place] U#:[id number] AGE/SX: 78/F ROOM: RE03/15/[address]: Dr. Ivis Stafford MD : 1945 BED: DIS: 03/15/2024 SPEC #: [id number] RECD: 03/15/24 14:25 STATUS: MICHAEL SWANChrista #: [id number] ROVERTO: 03/15/24 08:[address]: Ivis Stafford DEPT: SURGICAL PATHOLOGY RECD BY: Bronson Allan ENTERED: 03/15/24 14:25 SP TYPE: Calculi OTHR DR: Dr. Pito Fung, DO Tissues: CALCULI Procedures: Surgery Specimen Level I HEADER OPERATION: Thulium laser, bladder stone removal PRE-OP DIAGNOSIS: Bladder calculus, nocturia, urgency of micturition TISSUE SUBMITTED: Bladder stone GROSS DIAGNOSIS Fragments of stone, clinically blader stone for analysis (gross only). 03/15/2024 COMMENT The entire specimen is submitted for chemical stone analysis. The results from this study will be reported separately. GROSS DESCRIPTION Received without fixative labeled with the patient's name and designated bladder stone for analysis. The specimen consists of multiple fragments of light brown stone mixed with blood measuring 4.0 x 2.0 x 1.0 cm. The stone measures 0.1 to 0.3cm in greatest dimension. This specimen is for gross identification only. The entire specimen is submitted for stone analysis. 03/15/2024 CPT: 78454
--- NOTE | 2024-03-15 08:36 | PCM.OPRPT ---
Operative Report (Standard) Operative Information Surgery/Procedure Performed: Cystoscopy with laser lithotripsy bladder stone removal, extra-large bladder stone Surgeon: Ivis Stafford Date of Procedure: 03/15/24 Procedure Start Time: 08:57 Procedure Stop Time: 12:40 Pre-Operative Diagnosis: Extra-large bladder stone Post-Operative Diagnosis: same Select all DRAINS/GRAFTS/IMPLANTS that apply: None Type of Anesthesia: General Estimated Blood Loss: <5cc Specimen collected: Yes Description of specimen(s) removed: Bladder stone fragment Description of surgery: The patient is a 78-year-old female who presented to the office with findings of a 3 cm bladder calculus identified on CT scan. Informed consent was obtained and she agreed to proceed with surgical intervention. The patient was taken to the operating room and placed on the operating room table. Anesthesia monitored the head, neck, airway, IV access and vital signs throughout the case. Once anesthesia was appropriate ministered, she was placed into dorsolithotomy position was prepped and draped in usual sterile fashion. The cystoscope was inserted through the urethra under direct visualization into the urinary bladder. The bladder mucosa was visualized in its entirety revealing no evidence of mass or foreign body aside from the bladder calculus. Using the thulium laser, the stone was broken into dust and multiple pole small pieces which were irrigated and removed and a few were sent for pathologic evaluation. This repeated process of breaking the stone into small pieces and then irrigating the stone and dust was done for approximately 3-1/2 hours. After the stone was completely removed, there was no evidence of bladder injury identified. The bladder was then emptied and the scope was removed. She was awakened and taken to the recovery room in good condition. There were no complications during the procedure. 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
[2024-03-15] MEDS: Cefazolin 2 GM in Syringe IV (08:45)
--- NOTE | 2024-03-15 14:39 | PCM.POST.ANE ---
Anesthesia: Postop Eval I Current Vital Signs Temperature: 97 F Pulse Rate: 90 Blood Pressure: 131/83 Respiratory Rate: 18 Pulse Ox: 97 Oxygen Delivery Method: Room Air Assessment Airway patent: Yes Spontaneous unlabored respirations: Yes Mental status: Awake and Calm nausea: No Vomiting: No Anesthesia Complication: No Fluid Hydration Crystalloid volume administer (ml): 1,250 Total IV fluid infused: 1,250 Progress Note Anesthesia document: Postop Eval 1 completed: Yes
--- NOTE | 2024-03-15 16:26 | SUR.PHASEII ---
pt has been resting in bed with eyes closed and warmer on. No pain. Orientation much better and gait steady to walk to BR for urge to void now.
--- NOTE | 2024-03-15 16:50 | POSTOPAN2_ITS ---
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 Spontaneous unlabored Yes 03/15/24 14:39 HIGH SCHOOL SPECIAL EDUCATION TEACHER.MDOT respirations Mental status Awake,Calm 03/15/24 14:39 HIGH SCHOOL SPECIAL EDUCATION TEACHER.MDOT nausea No 03/15/24 14:39 HIGH SCHOOL SPECIAL EDUCATION TEACHER.MDOT Vomiting No 03/15/24 14:39 HIGH SCHOOL SPECIAL EDUCATION TEACHER.MDOT Anesthesia Postop Eval I: Fluid Summary Crystalloid volume administer 1,250 03/15/24 14:39 HIGH SCHOOL SPECIAL EDUCATION TEACHER.MDOT (ml) Colloids volume administered ( ml) Blood Product volume administered (ml) Total IV fluid infused 1,250 03/15/24 14:39 HIGH SCHOOL SPECIAL EDUCATION TEACHER.MDOT Anesthesia Postop Eval I: Summary Notes Anesthesia Complication No 03/15/24 14:39 HIGH SCHOOL SPECIAL EDUCATION TEACHER.MDOT Anesthesia Complication Comment: Post-operative progress note Anesthesia: Postop Eval II Evaluation Mental status: Awake Pain Level: 0 nausea: No Vomiting: No
--- NOTE | 2024-03-15 16:50 | PCM.POSTANE2 ---
Anesthesia Postop Eval I Sum Postop Eval Completion status Anesthesia document: Postop Eval 1 completed: Yes Anesthesia Postop Eval I Summary Anesthesia Postop Eval I Summary: Anesthesia Postop Eval I: Assessment Summary Airway patent Yes 03/15/24 14:39 SOLE SEWER HAND.MDOT Spontaneous unlabored Yes 03/15/24 14:39 SOLE SEWER HAND.MDOT respirations Mental status Awake,Calm 03/15/24 14:39 SOLE SEWER HAND.MDOT nausea No 03/15/24 14:39 SOLE SEWER HAND.MDOT Vomiting No 03/15/24 14:39 SOLE SEWER HAND.MDOT Anesthesia Postop Eval I: Fluid Summary Crystalloid volume administer 1,250 03/15/24 14:39 SOLE SEWER HAND.MDOT (ml) Colloids volume administered ( ml) Blood Product volume administered (ml) Total IV fluid infused 1,250 03/15/24 14:39 SOLE SEWER HAND.MDOT Anesthesia Postop Eval I: Summary Notes Anesthesia Complication No 03/15/24 14:39 SOLE SEWER HAND.MDOT Anesthesia Complication Comment: Post-operative progress note Anesthesia: Postop Eval II Evaluation Mental status: Awake Pain Level: 0 nausea: No Vomiting: No
[2024-03-22 11:10] LABS: Ca Hydrogen Phos 80 % (.); Calcium Phosphate (hydroxyl) 20 % (.); Size 6x5 mm (.)
== END 2024-03-15 18:08 | disposition home or self-care (01) ==
LOC: SDC 06:56 → AC 06:57
PROVIDERS: PCP Family Medicine; Referring Provider Urology; Visit Provider Urology
PROC: (CPT 52353; principal; 2024-03-15 08:25)
DX: N21.0 Calculus in bladder (principal); I10 Essential (primary) hypertension; Z79.899 Other long term (current) drug therapy
CPT/HCPCS: 52318; 00918; J7120; 36415; 80048; 82360; 85027; 88300; J2405

== ENCOUNTER → 2024-06-21 | Outpatient (CLI) | payer MEDICARE, OTHER, SELFPAY ==
--- NOTE | 2024-06-21 15:29 | BD_ITS ---
PROCEDURE: DEXA BONE DENSITY STUDY REASON FOR EXAM: F, age 78 y/o . Patient is postmenopausal. TECHNIQUE: DEXA scan of the lumbar spine and both hips. COMPARISON: DEXA examination dated 06/15/2022 FINDINGS: T-SCORES Lumbar spine: Total bone mineral density of the lumbar spine(L1-L3) measures 0.678 grams/centimeter squared. T-score measures -3.1 and Z-score measures -0.5. There has been a significant increase in the bone mineral density of the lumbar spine by 6.7% since the prior study dated 06/15/2022 Left hip: Total bone mineral density of the left hip measured 0.720 grams/centimeter squared. T-score measures -1.8 and Z-score measures 0.2. Bone mineral density of the left femoral neck measures 0.607 grams/centimeter squared. T-score measures -2.2 and Z-score measures 0.1. There has been a significant increase in the bone mineral density of the left hip by 7% since the prior study dated 06/15/2022 Right hip: Total bone mineral density of the right hip measures 0.657 grams/centimeter sq. T-score measures -2.3 and Z-score measures -0.4. Bone mineral density of the right femoral neck measures 0.571 grams/centimeter squared. T-score measures -2.5 and Z-score measures -0.3. There has been a decrease in the bone mineral density of the right hip by 1.4% since the prior study dated 06/15/2022 Patient demonstrates osteoporosis of the lumbar spine a and right hip. Patient demonstrates osteopenia of the left hip. FRAX* Results: 10 Year Probability of Fracture: Hip Fracture(1): 30% Major Osteoporotic Fracture(2): 21% *FRAX is a trademark of the [employer]'s [employer] for Metabolic Bone Disease, World Health Organization (WHO) Collaborating [employer]. 1-The 10-year probability of fracture may be lower than reported if the patient has received treatment. 2-Major Osteoporotic Fracture: Clinical Spine, Forearm, Hip or Shoulder. The T-scores are also available for review on the [facility] PACS or by accessing the [facility] electronic medical record. BD/Dexa Bone Density Study IMPRESSION: OSTEOPOROSIS. Reading Location: [id number]
== END | disposition home or self-care (01) ==
LOC: OPBD 15:28
PROVIDERS: PCP Family Medicine; Referring Provider Family Medicine; Visit Provider Family Medicine
DX: M81.0 Age-related osteoporosis without current pathological fracture (principal)
CPT/HCPCS: 77080

== ENCOUNTER 2025-04-09 09:48 | Outpatient (CLI) | payer MEDICARE, OTHER, SELFPAY ==
[2025-04-09 12:42] LABS: Hematocrit 38.0 % (37-47); Hemoglobin 13.0 g/dL (12.0-15.0); Immature Granulocytes Count 0.020 X10^3/uL (0.0-0.0); Mean Corp Hgb Conc 34.2 g/dL (32-36); Mean Corpuscular Volume 94.3 fL (81-99); Mean Platelet Vol. 9.2 fl (6.2-12.0); NRBC Flagged by Analyzer 0 % (0-5); Platelet Count 366 K/mm3 (150-450); RBC Distribution Width CV 12.5 % (11.6-14.6); RBC Distribution Width SD 43.1 fl (35.1-43.9); Red Blood Count 4.03 M/mm3 (4.2-5.4); White Blood Count 4.5 K/mm3 (4.4-11.0)
[2025-04-09 13:07] LABS: AST(SGOT) 29 U/L (<=31); Alanine Aminotransfer ALT/SGPT 18 U/L (<=34); Albumin, Serum 4.8 g/dL (3.4-4.8); Alkaline Phosphatase 35 U/L (35-104); Anion Gap 12 (5-15); BUN 7 mg/dL (4-19); BUN/Creat Ratio 14.4 RATIO (10-20); Calcium,Total 9.3 mg/dL (7.6-11.0); Carbon Dioxide 24.8 mmol/L (21.0-32.0); Chloride 96 mmol/L (98-108); Cholesterol 281 mg/dL (<=200); Globulin 2.3 g/dL (2.2-4.2); Glucose 113 mg/dL (70-99); Low Density Lipoprotein Calc. 197 mg/dL; Potassium 3.9 mmol/L (3.3-5.1); Triglycerides 87 mg/dL; Very Low Density Lipoprotein 17 mg/dL (5-40); cholesterol:hdl ratio screen 4.06
== END 2025-04-09 23:59 | disposition home or self-care (01) ==
LOC: MTLAB 09:49
PROVIDERS: PCP Family Medicine; Referring Provider Family Medicine; Visit Provider Family Medicine
DX: Z00.00 Encounter for general adult medical examination without abnormal findings (principal); I10 Essential (primary) hypertension
CPT/HCPCS: 80053; 80061; 85025